=== PATIENT | male | born 1950 | race Caucasian/White ===

== ENCOUNTER 2018-06-23 11:27 | Inpatient (IN) | payer MEDICARE ==
[2018-06-23] MEDS ORDERED: Vancomycin 1gm in NS 250ml 1 GM/250 ML BAG IVPB STA (12:37)
[2018-06-23] MEDS ORDERED: Piperacill/Tazo 4.5gm in NS 4.5 GM/100 ML BAG IVPB STA (12:37)
[2018-06-23] MEDS ORDERED: Clindamycin 600mg/50ml D5W 600 MG/50 ML VIAL IVPB STA (12:40)
--- NOTE | 2018-06-23 13:02 | ED PDOC ---
Arrival/HPI - General Chief Complaint: Male Genitourinary Time Seen by Provider: 06/23/18 11:31 Historian: Patient - History of Present Illness Narrative History of Present Illness (Text): 06/23/18 16:32 68-year-old male with a history of diabetes and recent robotic prostate surgery on June 07 presents today with worsening scrotal pain swelling and erythema with difficulties with urination. Patient states he had his Benedict catheter removed approximately 9 days ago and since then has been using a diaper and having difficulty with urination. Patient states over the past 5 days he's noticed a red painful burning rash noted to the scrotum and penis with retraction of his penis. pt c/o subjective fevers and chills at home. no other complaints. Past Medical History - Provider Review Nursing Documentation Reviewed: Yes - Travel History Have you recently traveled outside [place] w/in the past 3 mons?: No - Tetanus Immunization Tetanus Immunization: Unknown - Cardiac Hx Cardiac Disorders: Yes (mitral valve repair) Hx Hypertension: Yes - Pulmonary Hx Respiratory Disorders: No - Neurological Hx Neurological Disorder: No - HEENT Hx HEENT Disorder: Yes (uses prescription glasses) - Renal Hx Renal Disorder: No - Endocrine/Metabolic Hx Endocrine Disorders: Yes Hx Diabetes Mellitus Type 2: Yes - Hematological/Oncological Hx Blood Disorders: No - Integumentary Hx Dermatological Disorder: No - Musculoskeletal/Rheumatological Hx Musculoskeletal Disorders: No Hx Falls: No - Gastrointestinal Hx Gastrointestinal Disorders: No - Genitourinary/Gynecological Hx Genitourinary Disorders: No - Psychiatric Hx Psychophysiologic Disorder: No Hx Substance Use: No - Surgical History Hx Vascular Surgery: Yes (mitral valve) - Anesthesia Hx Anesthesia: Yes Hx Anesthesia Reactions: No Hx Malignant Hyperthermia: No Family/Social History - Physician Review Nursing Documentation Reviewed: Yes Family/Social History: Unknown Family HX Smoking Status: Never Smoked Hx Alcohol Use: No Hx Substance Use: No Allergies/Home Meds Allergies/Adverse Reactions: Allergies No Known Allergies Allergy (Unverified 07/10/16 14:25) Home Medications: Home Meds Medication Instructions Recorded Confirmed Lisinopril [Zestril] 10 mg PO DAILY 07/10/16 07/10/16 Metoprolol Succinate XL [Toprol XL] 50 mg PO DAILY 07/10/16 07/10/16 metFORMIN ER [glucoPHAGE XR] 750 mg PO DAILY 07/10/16 07/10/16 Review of Systems - Review of Systems Constitutional: Fevers. absent: Fatigue Respiratory: absent: SOB, Cough Cardiovascular: absent: Chest Pain, Palpitations Gastrointestinal: absent: Abdominal Pain, Constipation, Diarrhea, Nausea, Vomiting Genitourinary Male: Dysuria, Other (scrotal pain/swelling/ erythema) Musculoskeletal: absent: Arthralgias, Back Pain, Neck Pain Skin: Rash Neurological: absent: Headache, Dizziness Psychiatric: absent: Anxiety, Depression Physical Exam Vital Signs Reviewed: Yes Vital Signs Temp Pulse Resp BP Pulse Ox 06/23/18 11:36 97.9 F 106 H 20 111/60 96 Temperature: Afebrile Blood Pressure: Normal Pulse: Tachycardic Respiratory Rate: Normal Appearance: Positive for: Non-Toxic, Comfortable, Uncomfortable Pain Distress: Mild Mental Status: Positive for: Alert and Oriented X 3 - Systems Exam Head: Present: Atraumatic Mouth: Present: Moist Mucous Membranes Neck: Present: Normal Range of Motion Respiratory/Chest: Present: Clear to Auscultation, Good Air Exchange. No: Respiratory Distress, Accessory Muscle Use Cardiovascular: Present: Normal S1, S2, Tachycardic. No: Murmurs Abdomen: Present: Other (wounds healing well without signs of infection. ). No: Tenderness, Distention, Rebound, Guarding Genitourinary Male: Present: Erythema, Other (swelling tenderness and erythema noted to the scrotum without necrosis, no crepitus. ). No: Normal External Genitalia, Penile Discharge Back: Present: Normal Inspection Upper Extremity: Present: Normal ROM Lower Extremity: Present: Normal ROM Neurological: Present: GCS=15, Speech Normal Skin: Present: Warm, Dry Psychiatric: Present: Alert, Oriented x 3 Medical Decision Making ED Course and Treatment: 06/23/18 12:46 Patient with erythema and swelling and tenderness to the scrotum and penis: Concerning for a necrotizing fasciitis. blood and urine cultures ordered Patient was started on vancomycin and Zosyn and clindamycin IV I discussed the case immediately with Dr. Jefferson in depth I discussed the case immediately with Dr. Castro surgical services manager dr. ludwig discussed the case in depth with Dr. Olguin immediately . 06/23/18 15:59 pt was seen and evaluated by dr. jefferson. cbc; wbc;14.1 Cmp; wnl ct abd/pelvis; FINDINGS: LOWER THORAX: Unremarkable. LIVER: Unremarkable. No gross lesion or ductal dilatation. GALLBLADDER AND BILE DUCTS: Unremarkable. PANCREAS: Unremarkable. No gross lesion or ductal dilatation. SPLEEN: Unremarkable. ADRENALS: Unremarkable. No mass. KIDNEYS AND URETERS: Unremarkable. No hydronephrosis. No solid mass. VASCULATURE: Unremarkable. No aortic aneurysm. No aortic atherosclerotic calcification or mural plaque present. BOWEL: Unremarkable. No obstruction. No gross mural thickening. APPENDIX: Normal appendix. PERITONEUM: Well-circumscribed cystic lesions are seen in the pelvis. These are probably the sequela of previous prostatectomy. This could represent seromas or lymphoceles. On the right side the collection measures 4.3 x 6.1 cm and on the left side 2.7 x 3.3 cm. LYMPH NODES: Unremarkable. No enlarged lymph nodes. BLADDER: Unremarkable. REPRODUCTIVE: Prostatectomy BONES: No acute fracture. OTHER FINDINGS: None. IMPRESSION: No acute intra-abdominal findings ADDENDUM: Addendum: Additional images were obtained extending through the scrotum. There are no obvious inflammatory changes and no evidence of a gas- forming infection. [ Addendum Report Added by Félix Webster MD at 06/23/2018 16:29:01 ] pt reassessment; pt still c/o pain despite morphine; case discussed with dr. Morocho in depth; will admit to med/surg for cellulitis of scrotum with possible UTI. impression; cellulitis, scrotum admit med/surg - RAD Interpretation Radiology Orders: 06/23/18 12:34 ABD & PELVIS IV CONTRAST ONLY [CT] Stat - Medication Orders Current Medication Orders: Vancomycin HCl (Vancomycin 1gm) 1 gm in 250 mls @ 167 mls/hr IVPB STAT STA; Protocol Stop: 06/23/18 14:06 Piperacillin Sod/Tazobactam Sod (Zosyn 4.5 Gm In Ns 100ml) 4.5 gm in 100 mls @ 200 mls/hr IVPB STAT STA; Protocol Stop: 06/23/18 13:06 Clindamycin Phosphate (Cleocin) 600 mg in 50 mls @ 50 mls/hr IVPB STAT STA; Protocol Stop: 06/23/18 13:39 Disposition/Present on Arrival - Present on Arrival Any Indicators Present on Arrival: Yes History of DVT/PE: No History of Uncontrolled Diabetes: Yes Urinary Catheter: No History of Decub. Ulcer: No History Surgical Site Infection Following: None - Disposition Have Diagnosis and Disposition been Completed?: Yes Diagnosis: Cellulitis of scrotum Disposition: HOSPITALIZED Disposition Time: 15:00 Patient Plan: Admission Condition: FAIR Discharge Instructions (ExitCare): Cellulitis (ED) Referrals: Brielle KING,MD Kat [Primary Care Provider] - Follow up with primary Forms: [employer] ([place]rian)
[2018-06-23 13:10] LABS: VENOUS BLOOD GAS BASE EXCESS 1.3 mmol/L (0.0-2.0); VENOUS BLOOD GAS PO2 51 mm/Hg (30-55); VENOUS BLOOD PH 7.37 (7.32-7.43)
[2018-06-23 13:20] LABS: BASO # 0.02 K/mm3 (0.0-2.0); BASO % 0.1 % (0.0-3.0); EOS # 1.1 (0.0-0.7); EOS % 7.4 % (1.5-5.0); GRAN # 10.75 (1.4-6.5); GRAN % 74.8 % (50.0-68.0); HEMOGLOBIN 16.3 g/dL (14.0-18.0); LYMPH # 1.2 (1.2-3.4); LYMPH % 8.3 % (22.0-35.0); MEAN CELL VOLUME 85.6 fl (80.0-105.0); MEAN CORPUSCULAR HEMOGLOBIN 29.6 pg (25.0-35.0); MEAN CORPUSCULAR HGB CONC 34.6 g/dl (31.0-37.0); MEAN PLATELET VOLUME 9.4 fl (7.0-11.0); MONO # 1.4 (0.1-0.6); MONO % 9.4 % (1.0-6.0); RBC 5.5 10^6/uL (3.5-6.1); RED CELL DISTRIBUTION WIDTH 13.1 % (11.5-14.5); WHITE BLOOD COUNT 14.4 10^3/uL (4.5-11.0)
[2018-06-23 13:36] LABS: INR 1.13; PARTIAL THROMBOPLASTIN TIME 28.1 Seconds (25.1-36.5)
--- NOTE | 2018-06-23 13:42 | CP.PCM.CON ---
History of Present Illness - History of Present Illness History of Present Illness: Surgery Consult Note- Dr. Olguin 68M pmhx significant DM, HTN, s/p robotic prostatectomy on 05/2018 presents to [facility] ED w/ extreme pain and burning in the perineal area over the last 36 hours. Patient states that there has been swelling around the penis and it had started to invert unable to retract penis. Over the last 5 days patient has been wearing depends and ahs been incontinent. Of note patient has had a avitia removed 5 days ago that was in place after the total prostatectomy in [facility] on 06/07/2018. Patient had taken cipro after the avitia removal. Currently patient states pain is localized in the perineal region and around the glans of the penis, especially when he tries to retract the skin. Never had pain like this in the past. Admits foul smell worsening over the last 12 hours. Denies discharge from the site. States polyuria, and the urge to urinate very hour, however a feeling of unable to completely void. No change is BM, bright red blood per rectum. 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 Wahl) ALL: NKDA SocialHx: denies current tobacco, etoh, recreational drug use FH: non-contributory 12 pt ROS conducted, negative otherwise stated above Review of Systems - Review of Systems All systems: reviewed and no additional remarkable complaints except - Constitutional Constitutional: As Per HPI Past Patient History - Past Social History Smoking Status: Never Smoked - CARDIAC Hx Cardiac Disorders: Yes (mitral valve repair) Hx Hypertension: Yes - PULMONARY Hx Respiratory Disorders: No - NEUROLOGICAL Hx Neurological Disorder: No - HEENT Hx HEENT Problems: Yes (uses prescription glasses) - RENAL Hx Chronic Kidney Disease: No - ENDOCRINE/METABOLIC Hx Endocrine Disorders: Yes Hx Diabetes Mellitus Type 2: Yes - HEMATOLOGICAL/ONCOLOGICAL Hx Blood Disorders: No - INTEGUMENTARY Hx Dermatological Problems: No - MUSCULOSKELETAL/RHEUMATOLOGICAL Hx Musculoskeletal Disorders: No Hx Falls: No - GASTROINTESTINAL Hx Gastrointestinal Disorders: No - GENITOURINARY/GYNECOLOGICAL Hx Genitourinary Disorders: No - PSYCHIATRIC Hx Psychophysiologic Disorder: No Hx Substance Use: No - SURGICAL HISTORY Hx Vascular Surgery: Yes (mitral valve) - ANESTHESIA Hx Anesthesia: Yes Hx Anesthesia Reactions: No Hx Malignant Hyperthermia: No Meds Allergies/Adverse Reactions: Allergies Allergy/AdvReac Type Severity Reaction Status Date / Time No Known Allergies Allergy Unverified 07/10/16 14:25 - Medications Medications: Current Medications Vancomycin HCl (Vancomycin 1gm) 1 gm in 250 mls @ 167 mls/hr IVPB STAT STA; Protocol Stop: 06/23/18 14:06 Clindamycin Phosphate (Cleocin) 600 mg in 50 mls @ 50 mls/hr IVPB STAT STA; Protocol Stop: 06/23/18 13:39 Physical Exam - Constitutional Appears: Non-toxic, No Acute Distress - Head Exam Head Exam: ATRAUMATIC - Eye Exam Eye Exam: EOMI. absent: Scleral icterus - ENT Exam ENT Exam: Mucous Membranes Moist - Respiratory Exam Respiratory Exam: NORMAL BREATHING PATTERN. absent: Accessory Muscle Use, Respiratory Distress - Cardiovascular Exam Cardiovascular Exam: +S1, +S2. absent: Bradycardia, Tachycardia - GI/Abdominal Exam GI & Abdominal Exam: Soft, Tenderness (mild tenderness in supra-umbilical region). absent: Distended, Firm, Guarding, Hernia, Rigid Additional comments: incisions from robotic surgery healing well dermabond peeling off No erythema or discharge from surgical incision sites - Rectal Exam Rectal Exam: absent: Black Stool, Bloody Stool, Hemorrhoids Additional comments: good tone, no blood, no masses appreciated no creptius, no discharge - Exam Exam: Circumcision, Scrotal Swelling External exam: Erythema, Swelling. absent: Ecchymosis, Lacerations Additional comments: moist, erythematous no areas of induration or fluctuance raised erythema around scrotum glans of penis inverted into skin, was able to retract skin. no purulent discharge - Neurological Exam Neurological exam: Alert, Oriented x3 - Psychiatric Exam Psychiatric exam: Normal Affect - Skin Skin Exam: Intact, Warm Results - Vital Signs Recent Vital Signs: Last Vital Signs Temp 97.9 F 06/23/18 11:36 Pulse 106 H 06/23/18 11:36 Resp 20 06/23/18 11:36 BP 111/60 06/23/18 11:36 Pulse Ox 96 06/23/18 11:36 - Labs Result Diagrams: 06/23/18 12:34 06/23/18 13:00 Labs: Laboratory Results - last 24 hr 06/23/18 13:00 pO2 51 VBG pH 7.37 VBG pCO2 47.0 VBG HCO3 27.2 VBG Total CO2 28.6 H VBG O2 Sat (Calc) 89.2 H VBG Base Excess 1.3 VBG Potassium 4.2 Sodium 133.0 Chloride 98.0 Glucose 113 H Lactate 1.8 FiO2 21.0 Venous Blood Potassium 4.2 Assessment & Plan - Assessment and Plan (Free Text) Assessment: 68M w/ rash and cellulitis around pernineum CT: no inflam changes or gas forming infection in scrotum Plan: - keep area dry - recommend Urology consult - local wound care - no acute surgical intervention indicated at this time - please re-consult as needed - [facility]/ [facility]
[2018-06-23] MEDS ORDERED: Morphine 2 mg/ml ISec IVP STA (14:10)
[2018-06-23 14:21] LABS: ALB/GLOB RATIO 1.3 (1.1-1.8); ALBUMIN 3.9 g/dL (3.0-4.8); ALT/SGPT 30 U/L (7-56); AST/SGOT 31 U/L (17-59); BLOOD UREA NITROGEN 34 mg/dL (7-21); CALCIUM 10.4 mg/dL (8.4-10.5); GFR NON-AFRICAN AMERICAN 55
--- NOTE | 2018-06-23 15:34 | RAD ---
Date of service: 06/23/2018 HISTORY: scrotal pain/ recent surgery COMPARISON: 05/10/2016 FINDINGS: LUNGS: No active pulmonary disease. PLEURA: No significant pleural effusion identified, no pneumothorax apparent. CARDIOVASCULAR: No aortic atherosclerotic calcification present. Normal cardiac size. No pulmonary vascular congestion. OSSEOUS STRUCTURES: No significant abnormalities. VISUALIZED UPPER ABDOMEN: Normal. OTHER FINDINGS: None. IMPRESSION: No active disease.
--- NOTE | 2018-06-23 15:50 | CT ---
Date of service: 06/23/2018 PROCEDURE: CT Abdomen and Pelvis with contrast HISTORY: scrotal pain/swelling/erythema. Prostate removed COMPARISON: None. TECHNIQUE: Contrast dose: 150 cc of Omni 350 Radiation dose: Total exam DLP = 1402.15 mGy-cm. This CT exam was performed using one or more of the following dose reduction techniques: Automated exposure control, adjustment of the mA and/or kV according to patient size, and/or use of iterative reconstruction technique. FINDINGS: LOWER THORAX: Unremarkable. LIVER: Unremarkable. No gross lesion or ductal dilatation. GALLBLADDER AND BILE DUCTS: Unremarkable. PANCREAS: Unremarkable. No gross lesion or ductal dilatation. SPLEEN: Unremarkable. ADRENALS: Unremarkable. No mass. KIDNEYS AND URETERS: Unremarkable. No hydronephrosis. No solid mass. VASCULATURE: Unremarkable. No aortic aneurysm. No aortic atherosclerotic calcification or mural plaque present. BOWEL: Unremarkable. No obstruction. No gross mural thickening. APPENDIX: Normal appendix. PERITONEUM: Well-circumscribed cystic lesions are seen in the pelvis. These are probably the sequela of previous prostatectomy. This could represent seromas or lymphoceles. On the right side the collection measures 4.3 x 6.1 cm and on the left side 2.7 x 3.3 cm. LYMPH NODES: Unremarkable. No enlarged lymph nodes. BLADDER: Unremarkable. REPRODUCTIVE: Prostatectomy BONES: No acute fracture. OTHER FINDINGS: None. IMPRESSION: No acute intra-abdominal findings
--- NOTE | 2018-06-23 17:56 | CP.PCM.HP ---
<Narendra Garces - Last Filed: 06/23/18 20:15> History of Present Illness - History of Present Illness History of Present Illness: Narendra Garces, PGY-1 History and Physical for the Hospitalist Service CC: Inguinal Pain HPI: Mr. Brito is a 68 M with PMHx of essential HTN, L inguinal hernia, and NIDDM (Hgba1c 7.0 1 month ago) who presents s/p robotic prostatectomy two weeks ago for cancer diagnosed on biopsy at [facility] with extreme pain and burning in the perineal area and inguinal folds. Patient states that over the last 4 days, patient has been wearing adult diapers and has been incontinent. After the procedure at [facility], patient's urinary avitia was removed 5 days ago. Initially patient denies incontinence. However, patient developed incontinence and sensitive inguinal folds the past 2 days as the area remained moist and patient was unable to control his bladder. Currently, patient states pain is localized in the perineal region and around the glans of the penis. Patient denies discharge from the site. Patient reports polyuria and hesitancy but no hematuria. Patient feels as if he has an inability to completely void. Patient denies fevers, chills, chest pain, shortness of breath, nausea, vomiting, diarrhea, numbness/tingling in extremities, changes in bowel habits. 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 Hannah at [facility] Present on Admission - Present on Admission Any Indicators Present on Admission: No Review of Systems - Review of Systems Review of Systems: 12 point ROS completed and negative except as described in HPI. Past Patient History - Tetanus Immunizations Tetanus Immunization: Unknown - Past Social History Smoking Status: Never Smoked - CARDIAC Hx Cardiac Disorders: Yes (mitral valve repair) Hx Hypertension: Yes - PULMONARY Hx Respiratory Disorders: No - NEUROLOGICAL Hx Neurological Disorder: No - HEENT Hx HEENT Problems: Yes (uses prescription glasses) - RENAL Hx Chronic Kidney Disease: No - ENDOCRINE/METABOLIC Hx Endocrine Disorders: Yes Hx Diabetes Mellitus Type 2: Yes - HEMATOLOGICAL/ONCOLOGICAL Hx Blood Disorders: No - INTEGUMENTARY Hx Dermatological Problems: No - MUSCULOSKELETAL/RHEUMATOLOGICAL Hx Musculoskeletal Disorders: No Hx Falls: No - GASTROINTESTINAL Hx Gastrointestinal Disorders: No - GENITOURINARY/GYNECOLOGICAL Hx Genitourinary Disorders: No - PSYCHIATRIC Hx Psychophysiologic Disorder: No Hx Substance Use: No - SURGICAL HISTORY Hx Vascular Surgery: Yes (mitral valve) - ANESTHESIA Hx Anesthesia: Yes Hx Anesthesia Reactions: No Hx Malignant Hyperthermia: No Meds Allergies/Adverse Reactions: Allergies Allergy/AdvReac Type Severity Reaction Status Date / Time No Known Allergies Allergy Unverified 07/10/16 14:25 Physical Exam - Additional Findings Additional findings: - Constitutional Appears: Non-toxic, No Acute Distress - Head Exam Head Exam: ATRAUMATIC - Eye Exam Eye Exam: EOMI. absent: Scleral icterus - ENT Exam ENT Exam: Mucous Membranes Moist - Respiratory Exam Respiratory Exam: NORMAL BREATHING PATTERN. absent: Accessory Muscle Use, Respiratory Distress - Cardiovascular Exam Cardiovascular Exam: +S1, +S2. absent: Bradycardia, Tachycardia - GI/Abdominal Exam GI & Abdominal Exam: Soft, Tenderness in supra-umbilical region. absent: Distended, Firm, Guarding, Hernia, Rigid Additional comments: incisions from robotic surgery c/d/i No erythema or discharge - Rectal Exam Rectal Exam: absent: Black Stool, Bloody Stool, Hemorrhoids Additional comments: Deferred - Exam Exam: Circumcision, Scrotal Swelling External exam: Erythema, Swelling. absent: Ecchymosis, Lacerations Additional comments: moist, erythematous, small patches of raw skin in inguinal folds no areas of induration or fluctuance raised erythema around scrotum glans of penis retracted into skin without purulent discharge - Neurological Exam Neurological exam: Alert, Oriented x3 - Psychiatric Exam Psychiatric exam: Normal Affect - Skin Skin Exam: Intact, Warm Results - Vital Signs Recent Vital Signs: Last Vital Signs Temp 97.9 F 06/23/18 11:36 Pulse 102 H 06/23/18 16:35 Resp 19 06/23/18 16:35 BP 104/61 06/23/18 16:35 Pulse Ox 96 06/23/18 16:35 - Labs Result Diagrams: 06/23/18 12:34 06/23/18 13:00 Labs: Laboratory Results - last 24 hr 06/23/18 06/23/1806/23/18 12:34 13:00 13:00 WBC 14.4 H RBC 5.50 Hgb 16.3 Hct 47.1 MCV 85.6 MCH 29.6 MCHC 34.6 RDW 13.1 Plt Count 237 MPV 9.4 Gran % 74.8 H Lymph % (Auto) 8.3 L [place] % (Auto) 9.4 H Eos % (Auto) 7.4 H Baso % (Auto) 0.1 Gran # 10.75 H Lymph # (Auto) 1.2 [place] # (Auto) 1.4 H Eos # (Auto) 1.1 H Baso # (Auto) 0.02 PT 13.0 H INR 1.13 APTT 28.1 pO2 51 VBG pH 7.37 VBG pCO2 47.0 VBG HCO3 27.2 VBG Total CO2 28.6 H VBG O2 Sat (Calc) 89.2 H VBG Base Excess 1.3 VBG Potassium 4.2 Sodium 133.0 Chloride 98.0 Glucose 113 H Lactate 1.8 FiO2 21.0 Potassium Carbon Dioxide Anion Gap BUN Creatinine Est GFR ( Amer) Est GFR (Non-Af Amer) Random Glucose Calcium Total Bilirubin AST ALT Alkaline Phosphatase Total Protein Albumin Globulin Albumin/Globulin Ratio Venous Blood Potassium 4.2 Blood Type Antibody Screen BBK History Checked 06/23/18 06/23/18 13:00 13:05 WBC RBC Hgb Hct MCV MCH MCHC RDW Plt Count MPV Gran % Lymph % (Auto) [place] % (Auto) Eos % (Auto) Baso % (Auto) Gran # Lymph # (Auto) [place] # (Auto) Eos # (Auto) Baso # (Auto) PT INR APTT pO2 VBG pH VBG pCO2 VBG HCO3 VBG Total CO2 VBG O2 Sat (Calc) VBG Base Excess VBG Potassium Sodium 136 Chloride 100 Glucose Lactate FiO2 Potassium 4.3 Carbon Dioxide 25 Anion Gap 15 BUN 34 H Creatinine 1.3 Est GFR ( Amer) > 60 Est GFR (Non-Af Amer) 55 Random Glucose 113 H Calcium 10.4 Total Bilirubin 0.7 AST 31 ALT 30 Alkaline Phosphatase 70 Total Protein 6.8 Albumin 3.9 Globulin 2.9 Albumin/Globulin Ratio 1.3 Venous Blood Potassium Blood Type A POSITIVE Antibody Screen Negative BBK History Checked No verified bt Assessment & Plan - Assessment and Plan (Free Text) Assessment: 68 M with with PMHx of HTN, Mitral Valve Repair, and recent prostatectomy who presents with urinary incontinence and perineal cellulitis. Perineal Cellulitis/Dermatitis Does not meet SIRS criteria at time of evaluation, leukocytosis 14.4 Will hold fluids as BP improved from time of admission to 130/70 Gen Surgery consulted - Dr. Olguin - recyun appreciated Urology consulted - Dr. Jefferson - recyun appreciated regarding possibility of catheterization ID consult - Dr. Marcum - Abx approval and recs appreciated Vanc, Zosyn, Clindamycin Pain control with Tramadol and Morphine, Desitin ointment f/u AM labs f/u blood and urine cxs f/u Hgba1c HTN Lisinopril 10 mg continue to monitor BP - will consider starting fluids if hypotensive DM Low ISS Accuchecks f/u a1c Consistent carb diet DVT Ppx SCDs, Heparin 5000 q8 Patient seen, case reviewed and plan approved by Dr. Morocho. Narendra Garces, PGY-1 <Navi Morocho - Last Filed: 06/24/18 17:48> Results - Vital Signs Recent Vital Signs: Last Vital Signs Temp 97.7 F 06/24/18 14:00 Pulse 88 06/24/18 14:00 Resp 20 06/24/18 14:00 BP 131/73 06/24/18 14:00 Pulse Ox 97 06/24/18 14:00 - Labs Result Diagrams: 06/24/18 06:45 06/24/18 06:45 Labs: Laboratory Results - last 24 hr 06/23/18 06/23/18 06/23/18 18:24 19:15 20:57 WBC RBC Hgb Hct MCV MCH MCHC RDW Plt Count MPV Gran % Lymph % (Auto) [place] % (Auto) Eos % (Auto) Baso % (Auto) Gran # Lymph # (Auto) [place] # (Auto) Eos # (Auto) Baso # (Auto) Neutrophils % (Manual) Band Neutrophils % Lymphocytes % (Manual) Monocytes % (Manual) Eosinophils % (Manual) Sodium Potassium Chloride Carbon Dioxide Anion Gap BUN Creatinine Est GFR ( Amer) Est GFR (Non-Af Amer) POC Glucose (mg/dL) 93 Random Glucose Hemoglobin A1c Calcium Total Bilirubin AST ALT Alkaline Phosphatase Total Protein Albumin Globulin Albumin/Globulin Ratio Triglycerides Cholesterol LDL Cholesterol Direct HDL Cholesterol Urine Color Yellow Urine Appearance Slight-cloudy Urine pH 6.5 Ur Specific [place] <= 1.005 Urine Protein Trace H Urine Glucose (UA) Negative Urine Ketones Negative Urine Blood Large H Urine Nitrate Negative Urine Bilirubin Negative Urine Urobilinogen 0.2 Ur Leukocyte Esterase Negative Urine RBC 5 - 10 Urine WBC 0 - 2 Ur Epithelial Cells 0 - 2 Other Crystals Cystine Blood Type Confirm A POSITIVE 06/24/18 06/24/18 06/24/18 06:45 06:45 06:45 WBC 18.0 H D RBC 5.06 Hgb 14.7 Hct 43.6 MCV 86.2 MCH 29.1 MCHC 33.7 RDW 13.3 Plt Count 219 MPV 9.6 Gran % 83.1 H Lymph % (Auto) 4.7 L [place] % (Auto) 8.4 H Eos % (Auto) 3.6 Baso % (Auto) 0.2 Gran # 14.99 H Lymph # (Auto) 0.9 L [place] # (Auto) 1.5 H Eos # (Auto) 0.6 Baso # (Auto) 0.03 Neutrophils % (Manual) 82 H Band Neutrophils % 1 Lymphocytes % (Manual) 5 L Monocytes % (Manual) 10 H Eosinophils % (Manual) 2 Sodium 134 Potassium 4.2 Chloride 99 Carbon Dioxide 27 Anion Gap 12 BUN 24 H Creatinine 1.2 Est GFR ( Amer) > 60 Est GFR (Non-Af Amer) 60 POC Glucose (mg/dL) Random Glucose 134 H Hemoglobin A1c 6.9 H Calcium 8.8 Total Bilirubin 0.9 AST 33 ALT 32 Alkaline Phosphatase 70 Total Protein 6.4 Albumin 3.6 Globulin 2.8 Albumin/Globulin Ratio 1.3 Triglycerides 101 Cholesterol 113 L LDL Cholesterol Direct 71 HDL Cholesterol 30 Urine Color Urine Appearance Urine pH Ur Specific [place] Urine Protein Urine Glucose (UA) Urine Ketones Urine Blood Urine Nitrate Urine Bilirubin Urine Urobilinogen Ur Leukocyte Esterase Urine RBC Urine WBC Ur Epithelial Cells Other Crystals Blood Type Confirm 06/24/18 06/24/18 10:47 15:55 WBC RBC Hgb Hct MCV MCH MCHC RDW Plt Count MPV Gran % Lymph % (Auto) [place] % (Auto) Eos % (Auto) Baso % (Auto) Gran # Lymph # (Auto) [place] # (Auto) Eos # (Auto) Baso # (Auto) Neutrophils % (Manual) Band Neutrophils % Lymphocytes % (Manual) Monocytes % (Manual) Eosinophils % (Manual) Sodium Potassium Chloride Carbon Dioxide Anion Gap BUN Creatinine Est GFR ( Amer) Est GFR (Non-Af Amer) POC Glucose (mg/dL) 189 H 136 H Random Glucose Hemoglobin A1c Calcium Total Bilirubin AST ALT Alkaline Phosphatase Total Protein Albumin Globulin Albumin/Globulin Ratio Triglycerides Cholesterol LDL Cholesterol Direct HDL Cholesterol Urine Color Urine Appearance Urine pH Ur Specific [place] Urine Protein Urine Glucose (UA) Urine Ketones Urine Blood Urine Nitrate Urine Bilirubin Urine Urobilinogen Ur Leukocyte Esterase Urine RBC Urine WBC Ur Epithelial Cells Other Crystals Blood Type Confirm Attending/Attestation - Attestation I have personally seen and examined this patient.: Yes I have fully participated in the care of the patient.: Yes I have reviewed all pertinent clinical information: Yes Notes (Text): Perineal and scrotal cellulitis: Some concern for fornier's gangrene, however CT was negative Leukocytosis, LA WNL, low grade fever send blood cultures c/w dwight Bundy and clinda Urinary incontinence Urology on board, pt may benefit from indwelling avitia catheter DM: WILIAM 06/24/18 17:44
[2018-06-23 18:45] LABS: PH,URINE 6.5 (4.7-8.0); URINE BILIRUBIN NEGATIVE (NEGATIVE); URINE BLOOD LARGE (NEGATIVE); URINE GLUCOSE (UA) NEGATIVE (NEGATIVE); URINE LEUKOCYTE ESTERASE NEGATIVE Leu/uL (NEGATIVE); URINE PROTEIN TRACE mg/dL (<30 mg/dL); URINE UROBILINOGEN 0.2 E.U./dL (<1 E.U./dL)
[2018-06-23 18:46] LABS: URINE APPEARANCE SLIGHT-CLOUDY (CLEAR); URINE COLOR YELLOW (YELLOW)
[2018-06-23 18:55] LABS: URINE EPITHELIAL CELLS 0 - 2 /hpf (0-5); URINE WBC 0 - 2 /hpf (0-6)
[2018-06-23] MEDS ORDERED: Zinc Oxide Topical 40% Oint (Desitin) TOP PRN (18:56)
[2018-06-23 18:57] LABS: URINE OTHER CRYSTALS CYSTINE /hpf
[2018-06-23] MEDS: Insulin Reg-LOW-Coverage SC SCH (21:25)
[2018-06-23] MEDS: Morphine 2 mg/ml ISec IVP PRN (21:26)
[2018-06-23] MEDS ORDERED: Clindamycin 600mg/50ml D5W 600 MG/50 ML VIAL IVPB SCH (22:00)
[2018-06-23] MEDS ORDERED: Piperacillin/Tazobact 3.375 gm 100 ML IVPB SCH (22:00)
[2018-06-23 22:13] VITALS: BMI 28.7
[2018-06-23] MEDS: Linezolid 600 mg in D5W 300 ml 600 MG/300 ML BAG IVPB SCH (22:50)
--- NOTE | 2018-06-23 23:16 | PCM.URO ---
Urology Progress Note - Subjective Frequency: Yes (for now gu plans : observation and antibiotics ) - Objective Lab Studies: Reviewed (further plans to follow full note to be dictated) Lab Results Last 24 Hours: Laboratory Results - last 24 hr 06/23/18 06/23/18 06/23/18 12:34 13:00 13:00 WBC 14.4 H RBC 5.50 Hgb 16.3 Hct 47.1 MCV 85.6 MCH 29.6 MCHC 34.6 RDW 13.1 Plt Count 237 MPV 9.4 Gran % 74.8 H Lymph % (Auto) 8.3 L [place] % (Auto) 9.4 H Eos % (Auto) 7.4 H Baso % (Auto) 0.1 Gran # 10.75 H Lymph # (Auto) 1.2 [place] # (Auto) 1.4 H Eos # (Auto) 1.1 H Baso # (Auto) 0.02 PT 13.0 H INR 1.13 APTT 28.1 pO2 51 VBG pH 7.37 VBG pCO2 47.0 VBG HCO3 27.2 VBG Total CO2 28.6 H VBG O2 Sat (Calc) 89.2 H VBG Base Excess 1.3 VBG Potassium 4.2 Sodium 133.0 Chloride 98.0 Glucose 113 H Lactate 1.8 FiO2 21.0 Potassium Carbon Dioxide Anion Gap BUN Creatinine Est GFR ( Amer) Est GFR (Non-Af Amer) POC Glucose (mg/dL) Random Glucose Calcium Total Bilirubin AST ALT Alkaline Phosphatase Total Protein Albumin Globulin Albumin/Globulin Ratio Venous Blood Potassium 4.2 Urine Color Urine Appearance Urine pH Ur Specific [place] Urine Protein Urine Glucose (UA) Urine Ketones Urine Blood Urine Nitrate Urine Bilirubin Urine Urobilinogen Ur Leukocyte Esterase Urine RBC Urine WBC Ur Epithelial Cells Other Crystals Blood Type Blood Type Confirm Antibody Screen BBK History Checked 06/23/18 06/23/18 06/23/18 13:00 13:05 18:24 WBC RBC Hgb Hct MCV MCH MCHC RDW Plt Count MPV Gran % Lymph % (Auto) [place] % (Auto) Eos % (Auto) Baso % (Auto) Gran # Lymph # (Auto) [place] # (Auto) Eos # (Auto) Baso # (Auto) PT INR APTT pO2 VBG pH VBG pCO2 VBG HCO3 VBG Total CO2 VBG O2 Sat (Calc) VBG Base Excess VBG Potassium Sodium 136 Chloride 100 Glucose Lactate FiO2 Potassium 4.3 Carbon Dioxide 25 Anion Gap 15 BUN 34 H Creatinine 1.3 Est GFR ( Amer) > 60 Est GFR (Non-Af Amer) 55 POC Glucose (mg/dL) Random Glucose 113 H Calcium 10.4 Total Bilirubin 0.7 AST 31 ALT 30 Alkaline Phosphatase 70 Total Protein 6.8 Albumin 3.9 Globulin 2.9 Albumin/Globulin Ratio 1.3 Venous Blood Potassium Urine Color Yellow Urine Appearance Slight-cloudy Urine pH 6.5 Ur Specific [place] <= 1.005 Urine Protein Trace H Urine Glucose (UA) Negative Urine Ketones Negative Urine Blood Large H Urine Nitrate Negative Urine Bilirubin Negative Urine Urobilinogen 0.2 Ur Leukocyte Esterase Negative Urine RBC 5 - 10 Urine WBC 0 - 2 Ur Epithelial Cells 0 - 2 Other Crystals Cystine Blood Type A POSITIVE Blood Type Confirm Antibody Screen Negative BBK History Checked No verified bt 06/23/18 06/23/18 19:15 20:57 WBC RBC Hgb Hct MCV MCH MCHC RDW Plt Count MPV Gran % Lymph % (Auto) [place] % (Auto) Eos % (Auto) Baso % (Auto) Gran # Lymph # (Auto) [place] # (Auto) Eos # (Auto) Baso # (Auto) PT INR APTT pO2 VBG pH VBG pCO2 VBG HCO3 VBG Total CO2 VBG O2 Sat (Calc) VBG Base Excess VBG Potassium Sodium Chloride Glucose Lactate FiO2 Potassium Carbon Dioxide Anion Gap BUN Creatinine Est GFR ( Amer) Est GFR (Non-Af Amer) POC Glucose (mg/dL) 93 Random Glucose Calcium Total Bilirubin AST ALT Alkaline Phosphatase Total Protein Albumin Globulin Albumin/Globulin Ratio Venous Blood Potassium Urine Color Urine Appearance Urine pH Ur Specific [place] Urine Protein Urine Glucose (UA) Urine Ketones Urine Blood Urine Nitrate Urine Bilirubin Urine Urobilinogen Ur Leukocyte Esterase Urine RBC Urine WBC Ur Epithelial Cells Other Crystals Blood Type Blood Type Confirm A POSITIVE Antibody Screen BBK History Checked Intake & Output: Intake & Output 06/23/18 06/23/18 06/24/18 06:59 18:59 06:59 Intake Total 540 Balance 540 Weight 200 lb 200 lb Intake: Oral 540 Other: # Bowel Movements 0 Vital Signs: Vital Signs - 24 hr 06/23/18 06/23/18 06/23/18 11:36 13:28 16:35 Temperature 97.9 F Pulse Rate 106 H 100 H 102 H Respiratory 20 20 19 Rate Blood Pressure 111/60 120/69 104/61 O2 Sat by Pulse 96 98 96 Oximetry 06/23/18 06/23/18 06/23/18 18:44 20:12 22:44 Temperature 99 F Pulse Rate 95 H 90 97 H Respiratory 18 18 20 Rate Blood Pressure 130/70 137/80 112/71 O2 Sat by Pulse 98 98 97 Oximetry
[2018-06-24] MEDS: Morphine 2 mg/ml ISec IVP PRN ×4 (00:56→15:32)
[2018-06-24] MEDS: Meropenem IV 1 gm in NS 1 GM/50 ML BAG IVPB SCH ×3 (05:40→21:44)
[2018-06-24 07:26] LABS: BASO # 0.03 K/mm3 (0.0-2.0); BASO % 0.2 % (0.0-3.0); EOS # 0.6 (0.0-0.7); EOS % 3.6 % (1.5-5.0); GRAN # 14.99 (1.4-6.5); GRAN % 83.1 % (50.0-68.0); HEMOGLOBIN 14.7 g/dL (14.0-18.0); LYMPH # 0.9 (1.2-3.4); LYMPH % 4.7 % (22.0-35.0); MEAN CELL VOLUME 86.2 fl (80.0-105.0); MEAN CORPUSCULAR HEMOGLOBIN 29.1 pg (25.0-35.0); MEAN CORPUSCULAR HGB CONC 33.7 g/dl (31.0-37.0); MEAN PLATELET VOLUME 9.6 fl (7.0-11.0); MONO # 1.5 (0.1-0.6); MONO % 8.4 % (1.0-6.0); PLATELET COUNT 219 10^3/uL (120.0-450.0); RBC 5.06 10^6/uL (3.5-6.1); RED CELL DISTRIBUTION WIDTH 13.3 % (11.5-14.5)
[2018-06-24 07:36] LABS: ALB/GLOB RATIO 1.3 (1.1-1.8); ALBUMIN 3.6 g/dL (3.0-4.8); ALT/SGPT 32 U/L (7-56); AST/SGOT 33 U/L (17-59); BLOOD UREA NITROGEN 24 mg/dL (7-21); CALCIUM 8.8 mg/dL (8.4-10.5); GFR NON-AFRICAN AMERICAN 60; HDL CHOLESTEROL 30 mg/dL (29-60)
[2018-06-24 07:45] LABS: LDL CHOLESTEROL 71 mg/dL (0-129)
[2018-06-24 08:31] LABS: BAND 1 % (0-2); EOSINOPHIL 2 % (0.0-3.0); LYMPHOCYTE 5 % (22.0-35.0); MONOCYTE 10 % (1.0-6.0); NEUTROPHIL 82 % (50.0-70.0)
[2018-06-24] MEDS: Insulin Reg-LOW-Coverage SC SCH ×4 (09:10→21:45)
[2018-06-24] MEDS: Linezolid 600 mg in D5W 300 ml 600 MG/300 ML BAG IVPB SCH ×2 (09:18→21:45)
[2018-06-24] MEDS ORDERED: Vancomycin 1gm in NS 250ml 1 GM/250 ML BAG IVPB SCH (10:00)
--- NOTE | 2018-06-24 13:35 | PCM.URO ---
Urology Progress Note - Subjective Weak Stream: Yes (avitia insertion ) - Objective Lab Results Last 24 Hours: Laboratory Results - last 24 hr 06/23/18 06/23/18 06/23/18 13:00 13:00 13:05 WBC RBC Hgb Hct MCV MCH MCHC RDW Plt Count MPV Gran % Lymph % (Auto) [place] % (Auto) Eos % (Auto) Baso % (Auto) Gran # Lymph # (Auto) [place] # (Auto) Eos # (Auto) Baso # (Auto) Neutrophils % (Manual) Band Neutrophils % Lymphocytes % (Manual) Monocytes % (Manual) Eosinophils % (Manual) PT 13.0 H INR 1.13 APTT 28.1 Sodium 136 Potassium 4.3 Chloride 100 Carbon Dioxide 25 Anion Gap 15 BUN 34 H Creatinine 1.3 Est GFR ( Amer) > 60 Est GFR (Non-Af Amer) 55 POC Glucose (mg/dL) Random Glucose 113 H Hemoglobin A1c Calcium 10.4 Total Bilirubin 0.7 AST 31 ALT 30 Alkaline Phosphatase 70 Total Protein 6.8 Albumin 3.9 Globulin 2.9 Albumin/Globulin Ratio 1.3 Triglycerides Cholesterol LDL Cholesterol Direct HDL Cholesterol Urine Color Urine Appearance Urine pH Ur Specific [place] Urine Protein Urine Glucose (UA) Urine Ketones Urine Blood Urine Nitrate Urine Bilirubin Urine Urobilinogen Ur Leukocyte Esterase Urine RBC Urine WBC Ur Epithelial Cells Other Crystals Blood Type A POSITIVE Blood Type Confirm Antibody Screen Negative BBK History Checked No verified bt 06/23/18 06/23/18 06/23/18 18:24 19:15 20:57 WBC RBC Hgb Hct MCV MCH MCHC RDW Plt Count MPV Gran % Lymph % (Auto) [place] % (Auto) Eos % (Auto) Baso % (Auto) Gran # Lymph # (Auto) [place] # (Auto) Eos # (Auto) Baso # (Auto) Neutrophils % (Manual) Band Neutrophils % Lymphocytes % (Manual) Monocytes % (Manual) Eosinophils % (Manual) PT INR APTT Sodium Potassium Chloride Carbon Dioxide Anion Gap BUN Creatinine Est GFR ( Amer) Est GFR (Non-Af Amer) POC Glucose (mg/dL) 93 Random Glucose Hemoglobin A1c Calcium Total Bilirubin AST ALT Alkaline Phosphatase Total Protein Albumin Globulin Albumin/Globulin Ratio Triglycerides Cholesterol LDL Cholesterol Direct HDL Cholesterol Urine Color Yellow Urine Appearance Slight-cloudy Urine pH 6.5 Ur Specific [place] <= 1.005 Urine Protein Trace H Urine Glucose (UA) Negative Urine Ketones Negative Urine Blood Large H Urine Nitrate Negative Urine Bilirubin Negative Urine Urobilinogen 0.2 Ur Leukocyte Esterase Negative Urine RBC 5 - 10 Urine WBC 0 - 2 Ur Epithelial Cells 0 - 2 Other Crystals Cystine Blood Type Blood Type Confirm A POSITIVE Antibody Screen BBK History Checked 06/24/18 06/24/18 06/24/18 06:45 06:45 06:45 WBC 18.0 H D RBC 5.06 Hgb 14.7 Hct 43.6 MCV 86.2 MCH 29.1 MCHC 33.7 RDW 13.3 Plt Count 219 MPV 9.6 Gran % 83.1 H Lymph % (Auto) 4.7 L [place] % (Auto) 8.4 H Eos % (Auto) 3.6 Baso % (Auto) 0.2 Gran # 14.99 H Lymph # (Auto) 0.9 L [place] # (Auto) 1.5 H Eos # (Auto) 0.6 Baso # (Auto) 0.03 Neutrophils % (Manual) 82 H Band Neutrophils % 1 Lymphocytes % (Manual) 5 L Monocytes % (Manual) 10 H Eosinophils % (Manual) 2 PT INR APTT Sodium 134 Potassium 4.2 Chloride 99 Carbon Dioxide 27 Anion Gap 12 BUN 24 H Creatinine 1.2 Est GFR ( Amer) > 60 Est GFR (Non-Af Amer) 60 POC Glucose (mg/dL) Random Glucose 134 H Hemoglobin A1c 6.9 H Calcium 8.8 Total Bilirubin 0.9 AST 33 ALT 32 Alkaline Phosphatase 70 Total Protein 6.4 Albumin 3.6 Globulin 2.8 Albumin/Globulin Ratio 1.3 Triglycerides 101 Cholesterol 113 L LDL Cholesterol Direct 71 HDL Cholesterol 30 Urine Color Urine Appearance Urine pH Ur Specific [place] Urine Protein Urine Glucose (UA) Urine Ketones Urine Blood Urine Nitrate Urine Bilirubin Urine Urobilinogen Ur Leukocyte Esterase Urine RBC Urine WBC Ur Epithelial Cells Other Crystals Blood Type Blood Type Confirm Antibody Screen BBK History Checked 06/24/18 10:47 WBC RBC Hgb Hct MCV MCH MCHC RDW Plt Count MPV Gran % Lymph % (Auto) [place] % (Auto) Eos % (Auto) Baso % (Auto) Gran # Lymph # (Auto) [place] # (Auto) Eos # (Auto) Baso # (Auto) Neutrophils % (Manual) Band Neutrophils % Lymphocytes % (Manual) Monocytes % (Manual) Eosinophils % (Manual) PT INR APTT Sodium Potassium Chloride Carbon Dioxide Anion Gap BUN Creatinine Est GFR ( Amer) Est GFR (Non-Af Amer) POC Glucose (mg/dL) 189 H Random Glucose Hemoglobin A1c Calcium Total Bilirubin AST ALT Alkaline Phosphatase Total Protein Albumin Globulin Albumin/Globulin Ratio Triglycerides Cholesterol LDL Cholesterol Direct HDL Cholesterol Urine Color Urine Appearance Urine pH Ur Specific [place] Urine Protein Urine Glucose (UA) Urine Ketones Urine Blood Urine Nitrate Urine Bilirubin Urine Urobilinogen Ur Leukocyte Esterase Urine RBC Urine WBC Ur Epithelial Cells Other Crystals Blood Type Blood Type Confirm Antibody Screen BBK History Checked Intake & Output: Intake & Output 06/23/18 06/24/18 06/24/18 18:59 06:59 18:59 Intake Total 1180 Balance 1180 Weight 200 lb 200 lb Intake: IV 400 Right Antecubital 400 Oral 780 Other: # Voids Urine, Voided 4 # Bowel Movements 0 Vital Signs: Vital Signs - 24 hr 06/23/18 06/23/18 06/23/18 16:35 18:44 20:12 Temperature Pulse Rate 102 H 95 H 90 Respiratory 19 18 18 Rate Blood Pressure 104/61 130/70 137/80 O2 Sat by Pulse 96 98 98 Oximetry 06/23/18 06/23/18 06/24/18 20:56 22:44 06:00 Temperature 99 F 98.5 F Pulse Rate 97 H 100 H Respiratory 18 20 20 Rate Blood Pressure 112/71 119/70 O2 Sat by Pulse 97 96 Oximetry 06/24/18 09:17 Temperature Pulse Rate 95 H Respiratory Rate Blood Pressure 142/69 O2 Sat by Pulse Oximetry
--- NOTE | 2018-06-24 14:06 | CP.PCM.PN ---
<Marc Miller - Last Filed: 06/24/18 14:02> Subjective - Date & Time of Evaluation Date of Evaluation: 06/24/18 Time of Evaluation: 14:02 - Subjective Subjective: Marc Miller, PGY-1, Internal Medicine Progress Note Patient seen and evaluated at bedside. Patient had no acute overnight events. Patient reports pain, swelling, redness in the scrotum and surrounding inguinal folds. Patient denies fever, nausea, vomiting, penile discharge, dysuria, and hematuria. Patient does however report polyuria. 12-point ROS was negative except for what is mentioned above. Objective - Vital Signs/Intake and Output Vital Signs (last 24 hours): Temp Pulse Resp BP Pulse Ox 98.5 F 95 H 20 142/69 96 06/24/18 06:00 06/24/18 09:17 06/24/18 06:00 06/24/18 09:17 06/24/18 06:00 Intake and Output: 06/24/18 06/24/18 06:59 18:59 Intake Total 1180 Balance 1180 - Medications Medications: Current Medications Heparin Sodium (Porcine) (Heparin) 5,000 units SC Q8 CHANDNI; Protocol Last Admin: 06/24/18 13:29 Dose: 5,000 units Meropenem (Merrem Iv 1 Gm Premix) 1 gm in 50 mls @ 100 mls/hr IVPB Q8 CHANDNI; Protocol Stop: 07/03/18 06:01 Last Admin: 06/24/18 13:29 Dose: 100 mls/hr Linezolid (Zyvox 600mg/300ml D5w) 600 mg in 300 mls @ 200 mls/hr IVPB Q12 CHANDNI; Protocol Stop: 07/02/18 22:23 Last Admin: 06/24/18 09:18 Dose: 200 mls/hr Insulin Human Regular (Humulin R Low) 0 units SC ACHS CHANDNI; Protocol Last Admin: 06/24/18 11:25 Dose: 1 units Lisinopril (Zestril) 10 mg PO DAILY CHANDNI Last Admin: 06/24/18 09:17 Dose: 10 mg Morphine Sulfate (Morphine) 1 mg IVP Q4H PRN PRN Reason: Pain, severe (8-10) Last Admin: 06/24/18 09:13 Dose: 1 mg Petrolatum (Desitin Maximum Strength Topical 40% Oint) 0 gm TOP Q4H PRN PRN Reason: Rash Last Admin: 06/23/18 21:14 Dose: 1 applic - Labs Labs: 06/24/18 06:45 06/24/18 06:45 PT 13.0 SECONDS (9.4-12.5) H 06/23/18 13:00 INR 1.13 06/23/18 13:00 APTT 28.1 Seconds (25.1-36.5) 06/23/18 13:00 - Constitutional Appears: Well, Non-toxic, No Acute Distress - Head Exam Head Exam: ATRAUMATIC, NORMAL INSPECTION, NORMOCEPHALIC - Eye Exam Eye Exam: EOMI, PERRL - Neck Exam Neck Exam: Full ROM - Respiratory Exam Respiratory Exam: Clear to Ausculation Bilateral, NORMAL BREATHING PATTERN - Cardiovascular Exam Cardiovascular Exam: REGULAR RHYTHM, RRR - GI/Abdominal Exam GI & Abdominal Exam: Soft, Tenderness (suprapubic), Normal Bowel Sounds - Exam Exam: Scrotal Swelling, Testicular Tenderness. absent: Uretheral Discharge External exam: Erythema - Extremities Exam Extremities Exam: Full ROM - Psychiatric Exam Psychiatric exam: Normal Affect, Normal Mood - Skin Additional comments: erythematous and swollen scrotum and surrounding inguinal folds Assessment and Plan - Assessment and Plan (Free Text) Assessment: 68 year old male with past medical history of hypertension, left inguinal hernia, noninsulin dependent diabetes (HgbA1c 7.0 1 month ago), presents with extreme pain and burning in perineal area and inguinal folds. Patient has been incontinent for 4 days status post prostatectomy surgery 9 days ago Plan: Erythematous scrotum and inguinal area likely 2/2 to cellulitis -Likely secondary to area soaked in urine because of patient's recent incontinence and excoriations around the area. -Blood cultures are negative for 24 hours. Urine culture ordered. -Patient currently has leukocytosis at 18. Heart rate was 97 this morning. As a result, this patient fulfills sepsis criteria. -As per ID, continue with linezolid and merrem -Continue with desitin cream for affected area. -Morphine 1 mg Q4 for pain Retracted Penis with urinary incontinence -Likely secondary to inflammation from recent surgery or recent infection -Condition possibly caused by excess fat, fluid retention, and problems with ligaments post surgery. -As per Dr. Jefferson, avitia catheter placed for patient for incontinence. -As per surgery, Dr. Olguin, no surgical intervention at this time Hypertension -Continue home zestril Non insulin dependent Diabetes Mellitus -Glucose has ranged from 134-189 today. -HgbA1c was 6.9 -Low dose sliding scale insulin continued DVT prophylaxis: heparin 5000 U daily GI prophylaxis: protonix 40 mg daily Patient plan discussed with Dr. Barcenas <Shamir Barcenas - Last Filed: 06/24/18 17:58> Objective - Vital Signs/Intake and Output Vital Signs (last 24 hours): Temp Pulse Resp BP Pulse Ox 97.7 F 88 20 131/73 97 06/24/18 14:00 06/24/18 14:00 06/24/18 14:00 06/24/18 14:00 06/24/18 14:00 Intake and Output: 06/24/18 06/24/18 06:59 18:59 Intake Total 1180 Balance 1180 - Medications Medications: Current Medications Heparin Sodium (Porcine) (Heparin) 5,000 units SC Q8 CAHNDNI; Protocol Last Admin: 06/24/18 13:29 Dose: 5,000 units Meropenem (Merrem Iv 1 Gm Premix) 1 gm in 50 mls @ 100 mls/hr IVPB Q8 CHANDNI; Protocol Stop: 07/03/18 06:01 Last Admin: 06/24/18 13:29 Dose: 100 mls/hr Linezolid (Zyvox 600mg/300ml D5w) 600 mg in 300 mls @ 200 mls/hr IVPB Q12 CHANDNI; Protocol Stop: 07/02/18 22:23 Last Admin: 06/24/18 09:18 Dose: 200 mls/hr Insulin Human Regular (Humulin R Low) 0 units SC ACHS CHANDNI; Protocol Last Admin: 06/24/18 11:25 Dose: 1 units Lisinopril (Zestril) 10 mg PO DAILY CHANDNI Last Admin: 06/24/18 09:17 Dose: 10 mg Morphine Sulfate (Morphine) 1 mg IVP Q4H PRN PRN Reason: Pain, severe (8-10) Last Admin: 06/24/18 15:32 Dose: 1 mg Pantoprazole Sodium (Protonix Ec Tab) 40 mg PO ACB CHANDNI Petrolatum (Desitin Maximum Strength Topical 40% Oint) 0 gm TOP Q4H PRN PRN Reason: Rash Last Admin: 06/23/18 21:14 Dose: 1 applic - Labs Labs: 06/24/18 06:45 06/24/18 06:45 PT 13.0 SECONDS (9.4-12.5) H 06/23/18 13:00 INR 1.13 06/23/18 13:00 APTT 28.1 Seconds (25.1-36.5) 06/23/18 13:00 Attending/Attestation - Attestation I have personally seen and examined this patient.: Yes I have fully participated in the care of the patient.: Yes I have reviewed all pertinent clinical information, including history, physical exam and plan: Yes Notes (Text): 06/24/18 17:53 68 year old male with past medical history of hypertension, diabetes, and recent prostatectomy surgery who presented with scrotal / perineal cellulitis. CT scan was reviewed. ID and urology evaluation were appreciated. Continue with avitia care. Continue with iv antibiotics. Follow up on cultures. He is on insulin ss for diabetes. Shamir Barcenas MD Hospitalist.
--- NOTE | 2018-06-24 15:24 | CP.PCM.CON ---
<Marek Lorenzo - Last Filed: 06/24/18 17:01> History of Present Illness - History of Present Illness History of Present Illness: ID Consult Note - Dr Marcum CC: Perineal Cellulitis HPI: 68 M with PMHx of HTN, L inguinal hernia, and NIDDM that presented to [facility] with complaints of lower abdomen pain and discomfort. Pt approximately 2 weeks ago underwent a prostatectomy at [facility] and has been incontinent since that time and wearing diapers after avitia was removed. Approximately 5 days ago, he n oticed that he was experiencing significant discomfort in the perineal region and associated pain and itching. He denied any swelling or discharge from the site, however noticed significant skin irritation. Patient denies fevers, chills, chest pain, shortness of breath, nausea, hematuria, vomiting, diarrhea, or constipation. 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, robotic total prostatectomy SHx: former tobacco use, Otherwise denied FamHx: Non contributory Meds: MAR Reviewed Allergies: NKDA Review of Systems - Review of Systems Review of Systems: as per HPI otherwise negative Past Patient History - Tetanus Immunizations Tetanus Immunization: Unknown - Past Social History Smoking Status: Never Smoked - CARDIAC Hx Cardiac Disorders: Yes (mitral valve repair) Hx Hypertension: Yes - PULMONARY Hx Respiratory Disorders: No - NEUROLOGICAL Hx Neurological Disorder: No - HEENT Hx HEENT Problems: Yes (uses prescription glasses) - RENAL Hx Chronic Kidney Disease: No - ENDOCRINE/METABOLIC Hx Endocrine Disorders: Yes Hx Diabetes Mellitus Type 2: Yes - HEMATOLOGICAL/ONCOLOGICAL Hx Blood Disorders: No - INTEGUMENTARY Hx Dermatological Problems: No - MUSCULOSKELETAL/RHEUMATOLOGICAL Hx Musculoskeletal Disorders: No Hx Falls: No - GASTROINTESTINAL Hx Gastrointestinal Disorders: No - GENITOURINARY/GYNECOLOGICAL Hx Genitourinary Disorders: No - PSYCHIATRIC Hx Psychophysiologic Disorder: No - SURGICAL HISTORY Hx Surgeries: Yes (Mitral valve repair) Other/Comment: prostatectomy 06/07/2018 - ANESTHESIA Hx Anesthesia: Yes Hx Anesthesia Reactions: No Hx Malignant Hyperthermia: No Meds Allergies/Adverse Reactions: Allergies Allergy/AdvReac Type Severity Reaction Status Date / Time No Known Allergies Allergy Unverified 07/10/16 14:25 - Medications Medications: Current Medications Heparin Sodium (Porcine) (Heparin) 5,000 units SC Q8 CHANDNI; Protocol Last Admin: 06/24/18 13:29 Dose: 5,000 units Meropenem (Merrem Iv 1 Gm Premix) 1 gm in 50 mls @ 100 mls/hr IVPB Q8 CHANDNI; Protocol Stop: 07/03/18 06:01 Last Admin: 06/24/18 13:29 Dose: 100 mls/hr Linezolid (Zyvox 600mg/300ml D5w) 600 mg in 300 mls @ 200 mls/hr IVPB Q12 CHANDNI; Protocol Stop: 07/02/18 22:23 Last Admin: 06/24/18 09:18 Dose: 200 mls/hr Insulin Human Regular (Humulin R Low) 0 units SC ACHS CHANDNI; Protocol Last Admin: 06/24/18 11:25 Dose: 1 units Lisinopril (Zestril) 10 mg PO DAILY [facility] Last Admin: 06/24/18 09:17 Dose: 10 mg Morphine Sulfate (Morphine) 1 mg IVP Q4H PRN PRN Reason: Pain, severe (8-10) Last Admin: 06/24/18 09:13 Dose: 1 mg Pantoprazole Sodium (Protonix Inj) 40 mg IVP DAILY [facility] Petrolatum (Desitin Maximum Strength Topical 40% Oint) 0 gm TOP Q4H PRN PRN Reason: Rash Last Admin: 06/23/18 21:14 Dose: 1 applic Physical Exam - Constitutional Appears: No Acute Distress - Head Exam Head Exam: ATRAUMATIC, NORMAL INSPECTION, NORMOCEPHALIC - Eye Exam Eye Exam: EOMI, Normal appearance, PERRL Pupil Exam: NORMAL ACCOMODATION, PERRL - ENT Exam ENT Exam: Mucous Membranes Moist, Normal Exam - Respiratory Exam Respiratory Exam: Clear to Auscultation Bilateral, NORMAL BREATHING PATTERN - Cardiovascular Exam Cardiovascular Exam: REGULAR RHYTHM - GI/Abdominal Exam GI & Abdominal Exam: Normal Bowel Sounds, Soft. absent: Tenderness - Exam Additional comments: excoriated perineal region - Neurological Exam Neurological exam: Alert, CN II-XII Intact, Oriented x3, Reflexes Normal - Psychiatric Exam Psychiatric exam: Normal Affect, Normal Mood Results - Vital Signs Recent Vital Signs: Last Vital Signs Temp 97.7 F 06/24/18 14:00 Pulse 88 06/24/18 14:00 Resp 20 06/24/18 14:00 BP 131/73 06/24/18 14:00 Pulse Ox 97 06/24/18 14:00 - Labs Result Diagrams: 06/24/18 06:45 06/24/18 06:45 Labs: Laboratory Results - last 24 hr 06/23/18 06/23/18 06/23/18 18:24 19:15 20:57 WBC RBC Hgb Hct MCV MCH MCHC RDW Plt Count MPV Gran % Lymph % (Auto) [place] % (Auto) Eos % (Auto) Baso % (Auto) Gran # Lymph # (Auto) [place] # (Auto) Eos # (Auto) Baso # (Auto) Neutrophils % (Manual) Band Neutrophils % Lymphocytes % (Manual) Monocytes % (Manual) Eosinophils % (Manual) Sodium Potassium Chloride Carbon Dioxide Anion Gap BUN Creatinine Est GFR ( Amer) Est GFR (Non-Af Amer) POC Glucose (mg/dL) 93 Random Glucose Hemoglobin A1c Calcium Total Bilirubin AST ALT Alkaline Phosphatase Total Protein Albumin Globulin Albumin/Globulin Ratio Triglycerides Cholesterol LDL Cholesterol Direct HDL Cholesterol Urine Color Yellow Urine Appearance Slight-cloudy Urine pH 6.5 Ur Specific [place] <= 1.005 Urine Protein Trace H Urine Glucose (UA) Negative Urine Ketones Negative Urine Blood Large H Urine Nitrate Negative Urine Bilirubin Negative Urine Urobilinogen 0.2 Ur Leukocyte Esterase Negative Urine RBC 5 - 10 Urine WBC 0 - 2 Ur Epithelial Cells 0 - 2 Other Crystals Cystine Blood Type Confirm A POSITIVE 06/24/18 06/24/18 06/24/18 06:45 06:45 06:45 WBC 18.0 H D RBC 5.06 Hgb 14.7 Hct 43.6 MCV 86.2 MCH 29.1 MCHC 33.7 RDW 13.3 Plt Count 219 MPV 9.6 Gran % 83.1 H Lymph % (Auto) 4.7 L [place] % (Auto) 8.4 H Eos % (Auto) 3.6 Baso % (Auto) 0.2 Gran # 14.99 H Lymph # (Auto) 0.9 L [place] # (Auto) 1.5 H Eos # (Auto) 0.6 Baso # (Auto) 0.03 Neutrophils % (Manual) 82 H Band Neutrophils % 1 Lymphocytes % (Manual) 5 L Monocytes % (Manual) 10 H Eosinophils % (Manual) 2 Sodium 134 Potassium 4.2 Chloride 99 Carbon Dioxide 27 Anion Gap 12 BUN 24 H Creatinine 1.2 Est GFR ( Amer) > 60 Est GFR (Non-Af Amer) 60 POC Glucose (mg/dL) Random Glucose 134 H Hemoglobin A1c 6.9 H Calcium 8.8 Total Bilirubin 0.9 AST 33 ALT 32 Alkaline Phosphatase 70 Total Protein 6.4 Albumin 3.6 Globulin 2.8 Albumin/Globulin Ratio 1.3 Triglycerides 101 Cholesterol 113 L LDL Cholesterol Direct 71 HDL Cholesterol 30 Urine Color Urine Appearance Urine pH Ur Specific [place] Urine Protein Urine Glucose (UA) Urine Ketones Urine Blood Urine Nitrate Urine Bilirubin Urine Urobilinogen Ur Leukocyte Esterase Urine RBC Urine WBC Ur Epithelial Cells Other Crystals Blood Type Confirm 06/24/18 10:47 WBC RBC Hgb Hct MCV MCH MCHC RDW Plt Count MPV Gran % Lymph % (Auto) [place] % (Auto) Eos % (Auto) Baso % (Auto) Gran # Lymph # (Auto) [place] # (Auto) Eos # (Auto) Baso # (Auto) Neutrophils % (Manual) Band Neutrophils % Lymphocytes % (Manual) Monocytes % (Manual) Eosinophils % (Manual) Sodium Potassium Chloride Carbon Dioxide Anion Gap BUN Creatinine Est GFR ( Amer) Est GFR (Non-Af Amer) POC Glucose (mg/dL) 189 H Random Glucose Hemoglobin A1c Calcium Total Bilirubin AST ALT Alkaline Phosphatase Total Protein Albumin Globulin Albumin/Globulin Ratio Triglycerides Cholesterol LDL Cholesterol Direct HDL Cholesterol Urine Color Urine Appearance Urine pH Ur Specific [place] Urine Protein Urine Glucose (UA) Urine Ketones Urine Blood Urine Nitrate Urine Bilirubin Urine Urobilinogen Ur Leukocyte Esterase Urine RBC Urine WBC Ur Epithelial Cells Other Crystals Blood Type Confirm Assessment & Plan - Assessment and Plan (Free Text) Assessment: 68 M with with PMHx of HTN, Mitral Valve Repair, and recent prostatectomy with incontinence admitted for perineal cellulitis. sepsis likely 2/2 perineal Cellulitis Prostatectomy NIDDM MVP HTN Urology consulted, Dr. Bustamante Zyvox / Merrem CT reviewed no evidence of paz's Fu BCx, Ucx will continue to monitor <Truong Marcum - Last Filed: 06/24/18 17:49> Meds - Medications Medications: Current Medications Heparin Sodium (Porcine) (Heparin) 5,000 units SC Q8 CHANDNI; Protocol Last Admin: 06/24/18 13:29 Dose: 5,000 units Meropenem (Merrem Iv 1 Gm Premix) 1 gm in 50 mls @ 100 mls/hr IVPB Q8 CHANDNI; Protocol Stop: 07/03/18 06:01 Last Admin: 06/24/18 13:29 Dose: 100 mls/hr Linezolid (Zyvox 600mg/300ml D5w) 600 mg in 300 mls @ 200 mls/hr IVPB Q12 CHANDNI; Protocol Stop: 07/02/18 22:23 Last Admin: 06/24/18 09:18 Dose: 200 mls/hr Insulin Human Regular (Humulin R Low) 0 units SC ACHS CHANDNI; Protocol Last Admin: 06/24/18 11:25 Dose: 1 units Lisinopril (Zestril) 10 mg PO DAILY CHANDNI Last Admin: 06/24/18 09:17 Dose: 10 mg Morphine Sulfate (Morphine) 1 mg IVP Q4H PRN PRN Reason: Pain, severe (8-10) Last Admin: 06/24/18 15:32 Dose: 1 mg Pantoprazole Sodium (Protonix Ec Tab) 40 mg PO ACB [facility] Petrolatum (Desitin Maximum Strength Topical 40% Oint) 0 gm TOP Q4H PRN PRN Reason: Rash Last Admin: 06/23/18 21:14 Dose: 1 applic Results - Vital Signs Recent Vital Signs: Last Vital Signs Temp 97.7 F 06/24/18 14:00 Pulse 88 06/24/18 14:00 Resp 20 06/24/18 14:00 BP 131/73 06/24/18 14:00 Pulse Ox 97 06/24/18 14:00 - Labs Result Diagrams: 06/24/18 06:45 06/24/18 06:45 Labs: Laboratory Results - last 24 hr 06/23/18 06/23/18 06/23/18 18:24 19:15 20:57 WBC RBC Hgb Hct MCV MCH MCHC RDW Plt Count MPV Gran % Lymph % (Auto) [place] % (Auto) Eos % (Auto) Baso % (Auto) Gran # Lymph # (Auto) [place] # (Auto) Eos # (Auto) Baso # (Auto) Neutrophils % (Manual) Band Neutrophils % Lymphocytes % (Manual) Monocytes % (Manual) Eosinophils % (Manual) Sodium Potassium Chloride Carbon Dioxide Anion Gap BUN Creatinine Est GFR ( Amer) Est GFR (Non-Af Amer) POC Glucose (mg/dL) 93 Random Glucose Hemoglobin A1c Calcium Total Bilirubin AST ALT Alkaline Phosphatase Total Protein Albumin Globulin Albumin/Globulin Ratio Triglycerides Cholesterol LDL Cholesterol Direct HDL Cholesterol Urine Color Yellow Urine Appearance Slight-cloudy Urine pH 6.5 Ur Specific [place] <= 1.005 Urine Protein Trace H Urine Glucose (UA) Negative Urine Ketones Negative Urine Blood Large H Urine Nitrate Negative Urine Bilirubin Negative Urine Urobilinogen 0.2 Ur Leukocyte Esterase Negative Urine RBC 5 - 10 Urine WBC 0 - 2 Ur Epithelial Cells 0 - 2 Other Crystals Cystine Blood Type Confirm A POSITIVE 06/24/18 06/24/18 06/24/18 06:45 06:45 06:45 WBC 18.0 H D RBC 5.06 Hgb 14.7 Hct 43.6 MCV 86.2 MCH 29.1 MCHC 33.7 RDW 13.3 Plt Count 219 MPV 9.6 Gran % 83.1 H Lymph % (Auto) 4.7 L [place] % (Auto) 8.4 H Eos % (Auto) 3.6 Baso % (Auto) 0.2 Gran # 14.99 H Lymph # (Auto) 0.9 L [place] # (Auto) 1.5 H Eos # (Auto) 0.6 Baso # (Auto) 0.03 Neutrophils % (Manual) 82 H Band Neutrophils % 1 Lymphocytes % (Manual) 5 L Monocytes % (Manual) 10 H Eosinophils % (Manual) 2 Sodium 134 Potassium 4.2 Chloride 99 Carbon Dioxide 27 Anion Gap 12 BUN 24 H Creatinine 1.2 Est GFR ( Amer) > 60 Est GFR (Non-Af Amer) 60 POC Glucose (mg/dL) Random Glucose 134 H Hemoglobin A1c 6.9 H Calcium 8.8 Total Bilirubin 0.9 AST 33 ALT 32 Alkaline Phosphatase 70 Total Protein 6.4 Albumin 3.6 Globulin 2.8 Albumin/Globulin Ratio 1.3 Triglycerides 101 Cholesterol 113 L LDL Cholesterol Direct 71 HDL Cholesterol 30 Urine Color Urine Appearance Urine pH Ur Specific [place] Urine Protein Urine Glucose (UA) Urine Ketones Urine Blood Urine Nitrate Urine Bilirubin Urine Urobilinogen Ur Leukocyte Esterase Urine RBC Urine WBC Ur Epithelial Cells Other Crystals Blood Type Confirm 06/24/18 06/24/18 10:47 15:55 WBC RBC Hgb Hct MCV MCH MCHC RDW Plt Count MPV Gran % Lymph % (Auto) [place] % (Auto) Eos % (Auto) Baso % (Auto) Gran # Lymph # (Auto) [place] # (Auto) Eos # (Auto) Baso # (Auto) Neutrophils % (Manual) Band Neutrophils % Lymphocytes % (Manual) Monocytes % (Manual) Eosinophils % (Manual) Sodium Potassium Chloride Carbon Dioxide Anion Gap BUN Creatinine Est GFR ( Amer) Est GFR (Non-Af Amer) POC Glucose (mg/dL) 189 H 136 H Random Glucose Hemoglobin A1c Calcium Total Bilirubin AST ALT Alkaline Phosphatase Total Protein Albumin Globulin Albumin/Globulin Ratio Triglycerides Cholesterol LDL Cholesterol Direct HDL Cholesterol Urine Color Urine Appearance Urine pH Ur Specific [place] Urine Protein Urine Glucose (UA) Urine Ketones Urine Blood Urine Nitrate Urine Bilirubin Urine Urobilinogen Ur Leukocyte Esterase Urine RBC Urine WBC Ur Epithelial Cells Other Crystals Blood Type Confirm Assessment & Plan - Assessment and Plan (Free Text) Assessment: Infectious diseases Attending Physician Attestation Patient seen and examined, discussed with medical staff credentialing coordinator. I have reviewed the patient's history of present illness, past medical, social, personal and family histories, pertinent physical exam findings, course so far in this hospital admission, pertinent laboratory and imaging results. I agree with the above findings, assessment and plan. In addition, will continue Zyvox and Merrem for this patient with perineal cellulitis in a patient just underwent prostatectomy. Reviewed CT A/P. Follow up blood cx and will monitor clinical response.
[2018-06-24] MEDS ORDERED: Morphine 2 mg/ml ISec IVP PRN (20:04)
[2018-06-24] MEDS ORDERED: HYDROmorphone 1 mg/ml ISec IVP STA (23:22)
[2018-06-25] MEDS: HYDROmorphone 1 mg/ml ISec IVP PRN ×4 (02:35→23:32)
[2018-06-25] MEDS: Morphine 2 mg/ml ISec IVP PRN ×3 (03:54→13:45)
[2018-06-25] MEDS: Meropenem IV 1 gm in NS 1 GM/50 ML BAG IVPB SCH ×3 (05:46→21:19)
[2018-06-25 07:58] LABS: BASO # 0.03 K/mm3 (0.0-2.0); BASO % 0.2 % (0.0-3.0); EOS # 0.9 (0.0-0.7); EOS % 7.7 % (1.5-5.0); GRAN # 8.5 (1.4-6.5); GRAN % 70.5 % (50.0-68.0); HEMOGLOBIN 14.4 g/dL (14.0-18.0); LYMPH # 1.5 (1.2-3.4); LYMPH % 12.7 % (22.0-35.0); MEAN CORPUSCULAR HEMOGLOBIN 28.8 pg (25.0-35.0); MEAN CORPUSCULAR HGB CONC 32.7 g/dl (31.0-37.0); MEAN PLATELET VOLUME 9.5 fl (7.0-11.0); MONO # 1.1 (0.1-0.6); MONO % 8.9 % (1.0-6.0); RED CELL DISTRIBUTION WIDTH 13.1 % (11.5-14.5); WHITE BLOOD COUNT 12.1 10^3/uL (4.5-11.0)
[2018-06-25] MEDS: Insulin Reg-LOW-Coverage SC SCH ×4 (08:28→21:18)
[2018-06-25 08:35] LABS: ALB/GLOB RATIO 1.2 (1.1-1.8); ALBUMIN 3.5 g/dL (3.0-4.8); ALT/SGPT 25 U/L (7-56); AST/SGOT 30 U/L (17-59); BLOOD UREA NITROGEN 20 mg/dL (7-21); CALCIUM 8.5 mg/dL (8.4-10.5); GFR NON-AFRICAN AMERICAN 60
[2018-06-25] MEDS: Pantoprazole 40 mg EC Tab PO SCH (09:05)
[2018-06-25] MEDS: Linezolid 600 mg in D5W 300 ml 600 MG/300 ML BAG IVPB SCH ×2 (09:06→21:53)
--- NOTE | 2018-06-25 18:49 | CP.PCM.PN ---
<Marc Miller - Last Filed: 06/25/18 18:58> Subjective - Date & Time of Evaluation Date of Evaluation: 06/25/18 Time of Evaluation: 18:46 - Subjective Subjective: Marc Miller, PGY-1, Internal Medicine Progress Note for Dr. Barcenas Patient seen and evaluated at bedside. Patient had no acute overnight events. Patient continues to complain of incontinence episodes, and painful and erythematous scrotum. Patient denies fever, nausea, vomiting, chest pain, shortness of breath, constipation, diarrhea, dysuria, and hematuria. 12-point ROS was negative except for what was mentioned above. Objective - Vital Signs/Intake and Output Vital Signs (last 24 hours): Temp Pulse Resp BP Pulse Ox 98.2 F 82 18 123/95 H 94 L 06/25/18 16:42 06/25/18 16:42 06/25/18 16:42 06/25/18 16:42 06/25/18 16:42 Intake and Output: 06/25/18 06/25/18 06:59 18:59 Intake Total 620 Balance 620 - Medications Medications: Current Medications Heparin Sodium (Porcine) (Heparin) 5,000 units SC Q8 [facility]; Protocol Last Admin: 06/25/18 13:45 Dose: 5,000 units Hydromorphone HCl (Dilaudid) 1 mg IVP Q4H PRN PRN Reason: Pain, severe (8-10) Last Admin: 06/25/18 17:58 Dose: 1 mg Meropenem (Merrem Iv 1 Gm Premix) 1 gm in 50 mls @ 100 mls/hr IVPB Q8 [facility]; Protocol Stop: 07/03/18 06:01 Last Admin: 06/25/18 13:45 Dose: 100 mls/hr Linezolid (Zyvox 600mg/300ml D5w) 600 mg in 300 mls @ 200 mls/hr IVPB Q12 [facility]; Protocol Stop: 07/02/18 22:23 Last Admin: 06/25/18 09:06 Dose: 200 mls/hr Insulin Human Regular (Humulin R Low) 0 units SC ACHS [facility]; Protocol Last Admin: 06/25/18 16:45 Dose: Not Given Lisinopril (Zestril) 10 mg PO DAILY [facility] Last Admin: 06/25/18 09:05 Dose: 10 mg Morphine Sulfate (Morphine) 3 mg IVP Q4H PRN PRN Reason: Pain, moderate (4-7) Last Admin: 06/25/18 13:45 Dose: 3 mg Pantoprazole Sodium (Protonix Ec Tab) 40 mg PO ACB [facility] Last Admin: 06/25/18 09:05 Dose: 40 mg Petrolatum (Desitin Maximum Strength Topical 40% Oint) 0 gm TOP Q4H PRN PRN Reason: Rash Last Admin: 06/23/18 21:14 Dose: 1 applic - Labs Labs: 06/25/18 06:40 06/25/18 06:40 PT 13.0 SECONDS (9.4-12.5) H 06/23/18 13:00 INR 1.13 06/23/18 13:00 APTT 28.1 Seconds (25.1-36.5) 06/23/18 13:00 - Constitutional Appears: Well, Non-toxic, No Acute Distress - Head Exam Head Exam: ATRAUMATIC, NORMAL INSPECTION, NORMOCEPHALIC - Eye Exam Eye Exam: EOMI Pupil Exam: PERRL - Respiratory Exam Respiratory Exam: Clear to Ausculation Bilateral, NORMAL BREATHING PATTERN - Cardiovascular Exam Cardiovascular Exam: REGULAR RHYTHM, RRR - GI/Abdominal Exam GI & Abdominal Exam: Soft, Normal Bowel Sounds. absent: Tenderness - Exam Exam: Circumcision, Scrotal Swelling, Testicular Tenderness. absent: Uretheral Discharge External exam: Erythema Additional comments: retracted penis - Extremities Exam Extremities Exam: Full ROM - Neurological Exam Neurological Exam: Alert, Awake, CN II-XII Intact, Oriented x3 - Skin Skin Exam: Erythema (along inguinal folds) Assessment and Plan - Assessment and Plan (Free Text) Assessment: 68 year old male with past medical history of hypertension, left inguinal hernia, noninsulin dependent diabetes (HgbA1c 7.0 1 month ago), presents with extreme pain and burning in perineal area and inguinal folds. Patient has been incontinent for 5 days status post prostatectomy surgery 10 days ago Plan: Erythematous scrotum and inguinal area likely 2/2 to cellulitis -Likely secondary to area soaked in urine because of patient's recent incontinence and excoriations around the area. -Blood cultures are negative for 48 hours. Urine culture ordered. -Patient currently has leukocytosis at 12.1. Patient does not fulfill sepsis criteria. -As per ID, continue with linezolid and merrem -Continue with desitin cream for affected area. -Morphine 3 mg Q4, dilaudid 1 mg Q4PRN for pain Retracted Penis with urinary incontinence -Likely secondary to inflammation from recent surgery or recent infection -Patient currently incontinent secondary to prostatectomy. -Condition possibly caused by excess fat, fluid retention, and problems with ligaments post surgery. -As per Dr. Jefferson, avitia catheter will be placed for patient for incontinence. -As per surgery, Dr. Olguin, no surgical intervention at this time Hypertension -Systolic blood pressure ranged from 116-123 today. -Continue home zestril Non insulin dependent Diabetes Mellitus -Glucose has ranged from 94-175 today. -HgbA1c was 6.9 -Accuchecks Q6 -Consistent carbohydrate diet -Low dose sliding scale insulin continued DVT prophylaxis: heparin 5000 U daily GI prophylaxis: protonix 40 mg daily Patient plan discussed with Dr. Barcenas <Shamir Barcenas - Last Filed: 06/26/18 06:53> Objective - Vital Signs/Intake and Output Vital Signs (last 24 hours): Temp Pulse Resp BP Pulse Ox 98.5 F 80 18 125/92 H 95 06/25/18 22:22 06/25/18 22:22 06/25/18 22:22 06/25/18 22:22 06/25/18 22:22 Intake and Output: 06/25/18 06/26/18 18:59 06:59 Intake Total 300 Balance 300 - Medications Medications: Current Medications Heparin Sodium (Porcine) (Heparin) 5,000 units SC Q8 [facility]; Protocol Last Admin: 06/26/18 06:09 Dose: 5,000 units Hydromorphone HCl (Dilaudid) 1 mg IVP Q4H PRN PRN Reason: Pain, severe (8-10) Last Admin: 06/26/18 03:27 Dose: 1 mg Meropenem (Merrem Iv 1 Gm Premix) 1 gm in 50 mls @ 100 mls/hr IVPB Q8 [facility]; Protocol Stop: 07/03/18 06:01 Last Admin: 06/26/18 06:08 Dose: 100 mls/hr Linezolid (Zyvox 600mg/300ml D5w) 600 mg in 300 mls @ 200 mls/hr IVPB Q12 [facility]; Protocol Stop: 07/02/18 22:23 Last Admin: 06/25/18 21:53 Dose: 200 mls/hr Insulin Human Regular (Humulin R Low) 0 units SC ACHS [facility]; Protocol Last Admin: 06/25/18 21:18 Dose: Not Given Lisinopril (Zestril) 10 mg PO DAILY [facility] Last Admin: 06/25/18 09:05 Dose: 10 mg Morphine Sulfate (Morphine) 3 mg IVP Q4H PRN PRN Reason: Pain, moderate (4-7) Last Admin: 06/25/18 13:45 Dose: 3 mg Pantoprazole Sodium (Protonix Ec Tab) 40 mg PO ACB [facility] Last Admin: 06/25/18 09:05 Dose: 40 mg Petrolatum (Desitin Maximum Strength Topical 40% Oint) 0 gm TOP Q4H PRN PRN Reason: Rash Last Admin: 06/23/18 21:14 Dose: 1 applic - Labs Labs: 06/25/18 06:40 06/25/18 06:40 PT 13.0 SECONDS (9.4-12.5) H 06/23/18 13:00 INR 1.13 06/23/18 13:00 APTT 28.1 Seconds (25.1-36.5) 06/23/18 13:00 Attending/Attestation - Attestation I have personally seen and examined this patient.: Yes I have fully participated in the care of the patient.: Yes I have reviewed all pertinent clinical information, including history, physical exam and plan: Yes Notes (Text): 06/25/18 68 year old male with past medical history of hypertension, diabetes, and recent prostatectomy surgery who presented with scrotal / perineal cellulitis. CT scan was reviewed. ID and urology evaluation are following. Continue with iv antibiotics. He is awaiting on avitia insertion by urology. Follow up on cultures. He is on insulin ss for diabetes. Shamir Barcenas MD Hospitalist.
[2018-06-26] MEDS: HYDROmorphone 1 mg/ml ISec IVP PRN ×5 (03:27→20:37)
[2018-06-26] MEDS: Meropenem IV 1 gm in NS 1 GM/50 ML BAG IVPB SCH ×3 (06:08→21:21)
[2018-06-26 07:11] LABS: BASO # 0.02 K/mm3 (0.0-2.0); BASO % 0.2 % (0.0-3.0); EOS # 0.7 (0.0-0.7); EOS % 7.1 % (1.5-5.0); GRAN # 6.64 (1.4-6.5); GRAN % 68.9 % (50.0-68.0); HEMOGLOBIN 15.2 g/dL (14.0-18.0); LYMPH # 1.5 (1.2-3.4); LYMPH % 15.1 % (22.0-35.0); MEAN CORPUSCULAR HGB CONC 33.3 g/dl (31.0-37.0); MEAN PLATELET VOLUME 9.5 fl (7.0-11.0); MONO # 0.8 (0.1-0.6); MONO % 8.7 % (1.0-6.0); RBC 5.25 10^6/uL (3.5-6.1); RED CELL DISTRIBUTION WIDTH 12.8 % (11.5-14.5); WHITE BLOOD COUNT 9.6 10^3/uL (4.5-11.0)
[2018-06-26 07:43] LABS: ALB/GLOB RATIO 1.2 (1.1-1.8); ALBUMIN 3.6 g/dL (3.0-4.8); ALT/SGPT 24 U/L (7-56); AST/SGOT 18 U/L (17-59); BLOOD UREA NITROGEN 16 mg/dL (7-21); CALCIUM 8.9 mg/dL (8.4-10.5); GFR NON-AFRICAN AMERICAN 60
[2018-06-26] MEDS: Pantoprazole 40 mg EC Tab PO SCH (07:53)
[2018-06-26] MEDS: Insulin Reg-LOW-Coverage SC SCH ×4 (07:53→22:00)
[2018-06-26] MEDS: Linezolid 600 mg in D5W 300 ml 600 MG/300 ML BAG IVPB SCH ×2 (10:21→21:45)
--- NOTE | 2018-06-26 14:23 | PN ---
DATE: 06/26/2018 SUBJECTIVE: The patient is in bed, in no acute distress. He is seen earlier today in room 566, bed 1. No fevers and no chills. PHYSICAL EXAMINATION: VITAL SIGNS: Temperature is 98, blood pressure is 120/90, respiratory rate 18, heart rate of 80. Examination of HEENT is unremarkable. NECK: Supple. LUNGS: Have decreased breath sounds. HEART: Normal S1 and S2. ABDOMEN: Soft, nontender. LABORATORY EXAMINATION: Reveals a white count of 9.6, hemoglobin of 15, platelets of 248. Chemistries are noted to be on 07/03/2018, creatinine of 1.2. Urinalysis is noted. Microbiology reveals the blood cultures are negative. Urine cultures are negative. Review of orders reveals the patient to be on meropenem and Zyvox. ASSESSMENT AND PLAN: A 68-year-old male who was seen earlier today in room 566, bed 1 who has a history of diabetes, hypertension, left inguinal hernia with mitral valve repair, recent prostatectomy, incontinence, admitted with perineal cellulitis with sepsis and with a history of diabetes and prostatectomy, on Zyvox and meropenem. 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 Thus far, the blood and urine cultures are negative and we will follow with you. Cristóbal Prasad MD
[2018-06-26 14:47] LABS: BLOOD UREA NITROGEN 17 mg/dL (7-21); CALCIUM 8.8 mg/dL (8.4-10.5); GFR NON-AFRICAN AMERICAN 60
--- NOTE | 2018-06-26 16:20 | CP.PCM.PN ---
<Marc Miller - Last Filed: 06/26/18 15:54> Subjective - Date & Time of Evaluation Date of Evaluation: 06/26/18 Time of Evaluation: 15:54 - Subjective Subjective: Marc Miller, PGY-1, Internal Medicine Progress Note for Dr. Barcenas Patient seen and evaluated at bedside. Patient had no acute overnight events. Patient continues to complain of incontinence episodes but reports it has mildly improved, and has improved painful and erythematous scrotum. Patient denies fever, nausea, vomiting, chest pain, shortness of breath, constipation, diarrhea, dysuria, and hematuria. 12-point ROS was negative except for what was mentioned above. Objective - Vital Signs/Intake and Output Vital Signs (last 24 hours): Temp Pulse Resp BP Pulse Ox 98 F 77 20 134/85 94 L 06/26/18 06:00 06/26/18 06:00 06/26/18 06:00 06/26/18 06:00 06/26/18 06:00 Intake and Output: 06/26/18 06/26/18 06:59 18:59 Intake Total 300 Balance 300 - Medications Medications: Current Medications Heparin Sodium (Porcine) (Heparin) 5,000 units SC Q8 [facility]; Protocol Last Admin: 06/26/18 15:05 Dose: 5,000 units Hydromorphone HCl (Dilaudid) 1 mg IVP Q4H PRN PRN Reason: Pain, severe (8-10) Last Admin: 06/26/18 12:18 Dose: 1 mg Meropenem (Merrem Iv 1 Gm Premix) 1 gm in 50 mls @ 100 mls/hr IVPB Q8 [facility]; Protocol Stop: 07/03/18 06:01 Last Admin: 06/26/18 15:05 Dose: 100 mls/hr Linezolid (Zyvox 600mg/300ml D5w) 600 mg in 300 mls @ 200 mls/hr IVPB Q12 [facility]; Protocol Stop: 07/02/18 22:23 Last Admin: 06/26/18 10:21 Dose: 200 mls/hr Insulin Human Regular (Humulin R Low) 0 units SC ACHS [facility]; Protocol Last Admin: 06/26/18 12:00 Dose: Not Given Lisinopril (Zestril) 10 mg PO DAILY [facility] Last Admin: 06/25/18 09:05 Dose: 10 mg Morphine Sulfate (Morphine) 3 mg IVP Q4H PRN PRN Reason: Pain, moderate (4-7) Last Admin: 06/25/18 13:45 Dose: 3 mg Pantoprazole Sodium (Protonix Ec Tab) 40 mg PO ACB [facility] Last Admin: 06/26/18 07:53 Dose: 40 mg Petrolatum (Desitin Maximum Strength Topical 40% Oint) 0 gm TOP Q4H PRN PRN Reason: Rash Last Admin: 06/23/18 21:14 Dose: 1 applic Polyethylene Glycol (Miralax) 17 gm PO BID [facility] - Labs Labs: 06/26/18 06:00 06/26/18 14:15 PT 13.0 SECONDS (9.4-12.5) H 06/23/18 13:00 INR 1.13 06/23/18 13:00 APTT 28.1 Seconds (25.1-36.5) 06/23/18 13:00 - Constitutional Appears: Well, Non-toxic, No Acute Distress - Head Exam Head Exam: ATRAUMATIC, NORMAL INSPECTION, NORMOCEPHALIC - Eye Exam Eye Exam: EOMI, PERRL - Respiratory Exam Respiratory Exam: Clear to Ausculation Bilateral, NORMAL BREATHING PATTERN - Cardiovascular Exam Cardiovascular Exam: REGULAR RHYTHM - GI/Abdominal Exam GI & Abdominal Exam: Normal Bowel Sounds - Extremities Exam Extremities Exam: Full ROM - Neurological Exam Neurological Exam: Alert, Awake, CN II-XII Intact, Oriented x3 Assessment and Plan - Assessment and Plan (Free Text) Assessment: 68 year old male with past medical history of hypertension, left inguinal hernia, noninsulin dependent diabetes (HgbA1c 7.0 1 month ago), presents with extreme pain and burning in perineal area and inguinal folds. Patient has been incontinent for 6 days status post prostatectomy surgery 11 days ago Plan: Erythematous scrotum and inguinal area likely 2/2 to cellulitis -Likely secondary to area soaked in urine because of patient's recent incontinence and excoriations around the area. -Blood cultures are negative for 72 hours. Urine culture negative. -Patient currently has resolved leukocytosis at 9.6. Patient does not fulfill sepsis criteria. -As per ID, continue with linezolid day 4 and merrem day 3. -Continue with desitin cream for affected area. -Morphine 3 mg Q4, dilaudid 1 mg Q4PRN for pain Retracted Penis with urinary incontinence -Likely secondary to inflammation from recent surgery or recent infection -Patient currently incontinent secondary to prostatectomy. -Condition possibly caused by excess fat, fluid retention, and problems with ligaments post surgery. -As per Dr. Jefferson, avitia catheter will be placed for patient for incontinence. -As per surgery, Dr. Olguin, no surgical intervention at this time -Patient will need likely follow up with surgeon who performed prostatectomy for revision of urethra outpatient. Constipation -Miralax started today. Hypertension -BP: 134/85 -Home zestril held due to hyperkalemia Hyperkalemia -K: 5.3 -Home zestril held due to hyperkalemia. Non insulin dependent Diabetes Mellitus -Glucose has ranged from 132-188 today. -HgbA1c was 6.9 -Accuchecks Q6 -Consistent carbohydrate diet -Low dose sliding scale insulin continued DVT prophylaxis: heparin 5000 U daily GI prophylaxis: protonix 40 mg daily Patient plan discussed with Dr. Barcenas <Shamir Barcenas - Last Filed: 06/26/18 17:07> Objective - Vital Signs/Intake and Output Vital Signs (last 24 hours): Temp Pulse Resp BP Pulse Ox 98 F 77 20 134/85 94 L 06/26/18 06:00 06/26/18 06:00 06/26/18 06:00 06/26/18 06:00 06/26/18 06:00 Intake and Output: 06/26/18 06/26/18 06:59 18:59 Intake Total 300 Balance 300 - Medications Medications: Current Medications Heparin Sodium (Porcine) (Heparin) 5,000 units SC Q8 [facility]; Protocol Last Admin: 06/26/18 15:05 Dose: 5,000 units Hydromorphone HCl (Dilaudid) 1 mg IVP Q4H PRN PRN Reason: Pain, severe (8-10) Last Admin: 06/26/18 16:40 Dose: 1 mg Meropenem (Merrem Iv 1 Gm Premix) 1 gm in 50 mls @ 100 mls/hr IVPB Q8 [facility]; Protocol Stop: 07/03/18 06:01 Last Admin: 06/26/18 15:05 Dose: 100 mls/hr Linezolid (Zyvox 600mg/300ml D5w) 600 mg in 300 mls @ 200 mls/hr IVPB Q12 [facility]; Protocol Stop: 07/02/18 22:23 Last Admin: 06/26/18 10:21 Dose: 200 mls/hr Insulin Human Regular (Humulin R Low) 0 units SC ACHS [facility]; Protocol Last Admin: 06/26/18 16:41 Dose: 1 units Lisinopril (Zestril) 10 mg PO DAILY [facility] Last Admin: 06/25/18 09:05 Dose: 10 mg Morphine Sulfate (Morphine) 3 mg IVP Q4H PRN PRN Reason: Pain, moderate (4-7) Last Admin: 06/25/18 13:45 Dose: 3 mg Pantoprazole Sodium (Protonix Ec Tab) 40 mg PO ACB [facility] Last Admin: 06/26/18 07:53 Dose: 40 mg Petrolatum (Desitin Maximum Strength Topical 40% Oint) 0 gm TOP Q4H PRN PRN Reason: Rash Last Admin: 06/23/18 21:14 Dose: 1 applic Polyethylene Glycol (Miralax) 17 gm PO BID [facility] Last Admin: 06/26/18 16:42 Dose: 17 gm - Labs Labs: 06/26/18 06:00 06/26/18 14:15 PT 13.0 SECONDS (9.4-12.5) H 06/23/18 13:00 INR 1.13 06/23/18 13:00 APTT 28.1 Seconds (25.1-36.5) 06/23/18 13:00 Attending/Attestation - Attestation I have personally seen and examined this patient.: Yes I have fully participated in the care of the patient.: Yes I have reviewed all pertinent clinical information, including history, physical exam and plan: Yes Notes (Text): 06/26/18 17:06 68 year old male with past medical history of hypertension, diabetes, and recent prostatectomy surgery who presented with scrotal / perineal cellulitis. CT scan was reviewed. ID and urology are following. Continue with iv antibiotics. Cultures have been negative. Leukocytosis has improved today. He is awaiting on avitia insertion by urology. He is on insulin ss for diabetes. Miralax started for constipation. Shamir Barcenas MD Hospitalist.
[2018-06-26] MEDS: POLYETHYLENE GLYCOL 3350 17 GM/Dose PACKET PO SCH ×2 (16:42→18:00)
[2018-06-27] MEDS: HYDROmorphone 1 mg/ml ISec IVP PRN ×5 (00:36→17:01)
[2018-06-27] MEDS: Meropenem IV 1 gm in NS 1 GM/50 ML BAG IVPB SCH ×2 (05:22→14:00)
[2018-06-27 07:09] LABS: BASO # 0.02 K/mm3 (0.0-2.0); BASO % 0.2 % (0.0-3.0); EOS # 0.5 (0.0-0.7); EOS % 6.1 % (1.5-5.0); GRAN # 6.17 (1.4-6.5); GRAN % 71.2 % (50.0-68.0); HEMOGLOBIN 16.3 g/dL (14.0-18.0); LYMPH # 1.4 (1.2-3.4); LYMPH % 16.2 % (22.0-35.0); MEAN CELL VOLUME 86.3 fl (80.0-105.0); MEAN CORPUSCULAR HEMOGLOBIN 29.4 pg (25.0-35.0); MEAN PLATELET VOLUME 9.5 fl (7.0-11.0); MONO # 0.6 (0.1-0.6); MONO % 6.3 % (1.0-6.0); RBC 5.55 10^6/uL (3.5-6.1); RED CELL DISTRIBUTION WIDTH 12.7 % (11.5-14.5); WHITE BLOOD COUNT 8.7 10^3/uL (4.5-11.0)
[2018-06-27 07:31] LABS: ALB/GLOB RATIO 1.2 (1.1-1.8); ALT/SGPT 25 U/L (7-56); AST/SGOT 24 U/L (17-59); BLOOD UREA NITROGEN 17 mg/dL (7-21); CALCIUM 9.1 mg/dL (8.4-10.5); GFR NON-AFRICAN AMERICAN > 60
--- NOTE | 2018-06-27 07:48 | PN ---
DATE: 06/25/2018 SUBJECTIVE: The patient is in bed, in no acute distress. PHYSICAL EXAMINATION: VITAL SIGNS: Temperature is 98, blood pressure is 120/70, respiratory rate 16, heart rate of 88. HEENT: Unremarkable. NECK: Supple. LUNGS: Have decreased breath sounds. HEART: Normal S1, S2. ABDOMEN: Soft, nontender. LABORATORY EXAMINATION: Reveals the patient's white count is down from 18,000 to 4,000. Chemistries are noted, and urinalysis is reviewed. Microbiology reveals blood cultures are negative, urine cultures are negative. ASSESSMENT AND PLAN: A 68-year-old male with past medical history of hypertension, mitral valve repair, recent prostatectomy, perineal cellulitis, sepsis, perineal cellulitis and prostatectomy, diabetic, mitral valve prolapse, currently on Zyvox and meropenem. No evidence of Karan's on CAT scan. Review of orders reveals that the patient to be on meropenem and Zyvox, and blood cultures and urine cultures are negative. We will follow closely with you. Cristóbal Prasad MD
[2018-06-27] MEDS: Insulin Reg-LOW-Coverage SC SCH ×3 (08:40→17:02)
[2018-06-27] MEDS: Pantoprazole 40 mg EC Tab PO SCH (08:40)
[2018-06-27] MEDS: Linezolid 600 mg in D5W 300 ml 600 MG/300 ML BAG IVPB SCH (09:26)
[2018-06-27] MEDS: POLYETHYLENE GLYCOL 3350 17 GM/Dose PACKET PO SCH ×2 (09:27→17:01)
[2018-06-27 10:39] VITALS: RESP 20
--- NOTE | 2018-06-27 11:18 | CP.PCM.PN ---
<Marek Lorenzo - Last Filed: 06/27/18 17:04> Subjective - Date & Time of Evaluation Date of Evaluation: 06/27/18 Time of Evaluation: 08:45 - Subjective Subjective: ID Progress Note - Dr. Marcum Patient seen and examined at bedside. As per nursing staff, no acute or adverse events overnight. Patient notes improvement of his symptoms, less pain and less erythema to the region. He denied fever, nausea, vomiting, chest pain, shortness of breath, constipation, diarrhea, dysuria, and hematuria. He has set an appointment with his urologist for 07/06/18. Objective - Vital Signs/Intake and Output Vital Signs (last 24 hours): Temp Pulse Resp BP Pulse Ox 97.6 F 72 20 159/91 H 95 06/27/18 06:00 06/27/18 06:00 06/27/18 06:00 06/27/18 06:00 06/27/18 06:00 Intake and Output: 06/27/18 06/27/18 06:59 18:59 Intake Total 1110 Balance 1110 - Medications Medications: Current Medications Heparin Sodium (Porcine) (Heparin) 5,000 units SC Q8 [facility]; Protocol Last Admin: 06/27/18 05:22 Dose: 5,000 units Hydromorphone HCl (Dilaudid) 1 mg IVP Q4H PRN PRN Reason: Pain, severe (8-10) Last Admin: 06/27/18 08:39 Dose: 1 mg Meropenem (Merrem Iv 1 Gm Premix) 1 gm in 50 mls @ 100 mls/hr IVPB Q8 [facility]; Protocol Stop: 07/03/18 06:01 Last Admin: 06/27/18 05:22 Dose: 100 mls/hr Linezolid (Zyvox 600mg/300ml D5w) 600 mg in 300 mls @ 200 mls/hr IVPB Q12 [facility]; Protocol Stop: 07/02/18 22:23 Last Admin: 06/27/18 09:26 Dose: 200 mls/hr Insulin Human Regular (Humulin R Low) 0 units SC ACHS [facility]; Protocol Last Admin: 06/27/18 08:40 Dose: 1 units Lisinopril (Zestril) 10 mg PO DAILY [facility] Last Admin: 06/25/18 09:05 Dose: 10 mg Morphine Sulfate (Morphine) 3 mg IVP Q4H PRN PRN Reason: Pain, moderate (4-7) Last Admin: 06/25/18 13:45 Dose: 3 mg Pantoprazole Sodium (Protonix Ec Tab) 40 mg PO ACB [facility] Last Admin: 06/27/18 08:40 Dose: 40 mg Petrolatum (Desitin Maximum Strength Topical 40% Oint) 0 gm TOP Q4H PRN PRN Reason: Rash Last Admin: 06/23/18 21:14 Dose: 1 applic Polyethylene Glycol (Miralax) 17 gm PO BID [facility] Last Admin: 06/27/18 09:27 Dose: 17 gm - Labs Labs: 06/27/18 06:30 06/27/18 06:30 PT 13.0 SECONDS (9.4-12.5) H 06/23/18 13:00 INR 1.13 06/23/18 13:00 APTT 28.1 Seconds (25.1-36.5) 06/23/18 13:00 - Constitutional Appears: No Acute Distress - Head Exam Head Exam: ATRAUMATIC, NORMAL INSPECTION, NORMOCEPHALIC - Eye Exam Eye Exam: EOMI, Normal appearance, PERRL Pupil Exam: NORMAL ACCOMODATION, PERRL - ENT Exam ENT Exam: Mucous Membranes Moist, Normal Exam - Respiratory Exam Respiratory Exam: Clear to Ausculation Bilateral, NORMAL BREATHING PATTERN - Cardiovascular Exam Cardiovascular Exam: REGULAR RHYTHM, +S1, +S2. absent: Murmur - GI/Abdominal Exam GI & Abdominal Exam: Soft, Normal Bowel Sounds. absent: Tenderness - Exam Additional comments: Swollen scrotum, improved from previously, less erythema to the scrotum - Extremities Exam Extremities Exam: Full ROM, Normal Capillary Refill, Normal Inspection. absent: Joint Swelling, Pedal Edema - Back Exam Back Exam: NORMAL INSPECTION - Neurological Exam Neurological Exam: Alert, Awake, CN II-XII Intact, Normal Gait, Oriented x3 - Psychiatric Exam Psychiatric exam: Normal Affect, Normal Mood - Skin Skin Exam: Dry, Intact, Normal Color, Warm Assessment and Plan - Assessment and Plan (Free Text) Assessment: 68 M with with PMHx of HTN, Mitral Valve Repair, and recent prostatectomy with incontinence admitted for perineal cellulitis. sepsis likely 2/2 perineal Cellulitis, clinically improving Leukocytosis resolved Prostatectomy NIDDM MVP HTN Urology consulted, Dr. Bustamante, no avitia at this time will continue Zyvox and Merrem for perineal cellulitis s/p prostatectomy. Reviewed CT A/P. Follow up blood cx resulted negative as well as urine cx and will monitor clinical response. CT reviewed no evidence of paz's will continue to monitor <Truong Marcum S - Last Filed: 06/27/18 21:03> Objective - Vital Signs/Intake and Output Vital Signs (last 24 hours): Temp Pulse Resp BP Pulse Ox 98 F 77 20 153/93 H 94 L 06/27/18 14:00 06/27/18 14:00 06/27/18 14:00 06/27/18 14:00 06/27/18 14:00 - Medications Medications: Current Medications Heparin Sodium (Porcine) (Heparin) 5,000 units SC Q8 [facility]; Protocol Last Admin: 06/27/18 15:16 Dose: 5,000 units Hydromorphone HCl (Dilaudid) 1 mg IVP Q4H PRN PRN Reason: Pain, severe (8-10) Last Admin: 06/27/18 17:01 Dose: 1 mg Meropenem (Merrem Iv 1 Gm Premix) 1 gm in 50 mls @ 100 mls/hr IVPB Q8 [facility]; Protocol Stop: 07/03/18 06:01 Last Admin: 06/27/18 14:00 Dose: 100 mls/hr Linezolid (Zyvox 600mg/300ml D5w) 600 mg in 300 mls @ 200 mls/hr IVPB Q12 [facility]; Protocol Stop: 07/02/18 22:23 Last Admin: 06/27/18 09:26 Dose: 200 mls/hr Insulin Human Regular (Humulin R Low) 0 units SC ACHS [facility]; Protocol Last Admin: 06/27/18 17:02 Dose: Not Given Lisinopril (Zestril) 10 mg PO DAILY [facility] Last Admin: 06/25/18 09:05 Dose: 10 mg Morphine Sulfate (Morphine) 3 mg IVP Q4H PRN PRN Reason: Pain, moderate (4-7) Last Admin: 06/25/18 13:45 Dose: 3 mg Pantoprazole Sodium (Protonix Ec Tab) 40 mg PO ACB [facility] Last Admin: 06/27/18 08:40 Dose: 40 mg Petrolatum (Desitin Maximum Strength Topical 40% Oint) 0 gm TOP Q4H PRN PRN Reason: Rash Last Admin: 06/23/18 21:14 Dose: 1 applic Polyethylene Glycol (Miralax) 17 gm PO BID [facility] Last Admin: 06/27/18 17:01 Dose: 17 gm - Labs Labs: 06/27/18 06:30 06/27/18 06:30 PT 13.0 SECONDS (9.4-12.5) H 06/23/18 13:00 INR 1.13 06/23/18 13:00 APTT 28.1 Seconds (25.1-36.5) 06/23/18 13:00 Assessment and Plan - Assessment and Plan (Free Text) Assessment: Infectious diseases Attending Physician Attestation Patient seen and examined, discussed with certified medical technician assistant. I have reviewed the patient's history of present illness, past medical, social, personal and family histories, pertinent physical exam findings, course so far in this hospital admission, pertinent laboratory and imaging results. I agree with the above findings, assessment and plan. In addition, will continue Zyvox and Merrem for perineal cellulitis. Can switch to PO Zyvox, Vantin and Flagyl for another 7-10 days when ready for discharge.
--- NOTE | 2018-06-27 11:38 | PN ---
DATE: 06/24/2018 SUBJECTIVE: See previous consult note from 06/23/2018, today's date is 06/24/2018. CT scan official report, there is no air. General surgery is also seeing the patient. From Neurology standpoint, that is similar to findings of yesterday. No major changes. PAST MEDICAL AND SURGICAL HISTORY: As listed. PHYSICAL EXAMINATION: There is no change, no worse. DIAGNOSES: 1. Urinary retention. 2. What appears to be dermatitis of the skin. ASSESSMENT AND PLAN: My recommendation will be to insert a Benedict catheter, I discussed this with the patient. We will ask the nurses to insert the Benedict catheter. Just not that he is in retention, no evidence of on CT scan but just to keep the area clean and dry. PLAN: Further plans will follow. Continue his both again. I will consider Dermatology consult and then also the plan the patient to return to his primary urologist to see if recommendation, again he had a surgery in [place] and the was related to the surgical procedure. As per the patient's history, he reports prior to the procedure, no major incontinence. Therefore, we are going to recommend that he return to his primary surgeon who will therefore make recommendations and plan. I received the phone call from the patient after the fact that his primary urologist had recommended that only a urologist insert the Benedict catheter through his urethra. Therefore, at this point, he prefers there is no way out to insert the catheter. So I will discuss that and plan for him. I discussed with him that the next time I am in the hospital, if he wants, I will insert the catheter. In the interim, he may consider using a condom catheter or he could even again consider not having any catheter since he is emptying his bladder well. We will discuss this further, but I did offer him the next time we come in, we will offer inserting a Benedict catheter. I did offer also that I do think that the nursing staff would be able to try Jevity, insert a Benedict catheter and if they run into difficulty that will be a different story. Although I did discuss with the fresh anastomosis, but it is at this point already quite sometime of healing. So I told him if he is interested now. Gabe Jefferson MD
--- NOTE | 2018-06-27 12:31 | PN ---
DATE: 06/27/2018 UROLOGY PROGRESS NOTE Please see my previously dictated note and . Very pleasant gentleman who has a history of status post radical prostatectomy, which was done in with robotic surgery and it further appears urinary incontinence. Initially, we discussed this with . catheter insertion. At this point, he appearing well. He is on antibiotics and he is no longer interested in the catheter. the catheter was to keep the housekeeping cleaner because of incontinence. That is not to be urinary retention based on the CT scan. So at this point . Patient is directed to the hospital, he is currently eating breakfast. he cannot have anything further as it . . No other changes. PHYSICAL EXAMINATION: ABDOMEN: A little soft. No no discharge. The groin is much, much, much improved. There are still some areas of erythema . DIAGNOSES: Prostatectomy with urinary incontinence and skin cellulitis/dermatitis. As before, the recommendation was to to consider getting a Dermatology consult and input. From Urology standpoint, there is nothing further at this point. He does not want a catheter, I suggested to him he goes back to his primary urologist to begin with . He was planning to call there today. I discussed with the patient that if he needs anything further, he should call me back directly. I have given him my phone number. And then further plans will follow. Gabe Jefferson MD
[2018-06-27 14:52] VITALS: BP 153/93; PULSE 77; TEMP 98; O2SAT 94
--- NOTE | 2018-06-27 18:17 | CP.PCM.DIS ---
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 Physician Consult Routine Comment: Consulting Provider: Shashi Jefferson Consulting Physician: Shashi Jefferson Reason for Consult: perineal cellulitis and incontinence s/p prostatectomy 06/23/18 20:35 Infectious Disease Consult Routine Comment: Consulting Provider: Truong Marcum Consulting Physician: Truong Marcum Reason for Consult: ABx coverage approval Time Spent in preparation of Discharge (in minutes): 60 Diagnosis - Discharge Diagnosis (1) Cellulitis of scrotum Status: Acute Hospital Course - Lab Results Lab Results: Micro Results 06/23/18 13:00 Blood Blood Culture - Preliminary NO GROWTH AFTER 4 DAYS 06/23/18 13:00 Blood Blood Culture - Preliminary NO GROWTH AFTER 4 DAYS 06/23/18 21:10 Urine Urine Culture - Final No Growth (<1,000 CFU/ML) Most Recent Lab Values WBC 8.7 10^3/uL (4.5-11.0) 06/27/18 06:30 RBC 5.55 10^6/uL (3.5-6.1) 06/27/18 06:30 Hgb 16.3 g/dL (14.0-18.0) 06/27/18 06:30 Hct 47.9 % (42.0-52.0) 06/27/18 06:30 MCV 86.3 fl (80.0-105.0) 06/27/18 06:30 MCH 29.4 pg (25.0-35.0) 06/27/18 06:30 MCHC 34.0 g/dl (31.0-37.0) 06/27/18 06:30 RDW 12.7 % (11.5-14.5) 06/27/18 06:30 Plt Count 278 10^3/uL (120.0-450.0) 06/27/18 06:30 MPV 9.5 fl (7.0-11.0) 06/27/18 06:30 Gran % 71.2 % (50.0-68.0) H 06/27/18 06:30 Lymph % (Auto) 16.2 % (22.0-35.0) L 06/27/18 06:30 Ray % (Auto) 6.3 % (1.0-6.0) H 06/27/18 06:30 Eos % (Auto) 6.1 % (1.5-5.0) H 06/27/18 06:30 Baso % (Auto) 0.2 % (0.0-3.0) 06/27/18 06:30 Gran # 6.17 (1.4-6.5) 06/27/18 06:30 Lymph # (Auto) 1.4 (1.2-3.4) 06/27/18 06:30 Ray # (Auto) 0.6 (0.1-0.6) 06/27/18 06:30 Eos # (Auto) 0.5 (0.0-0.7) 06/27/18 06:30 Baso # (Auto) 0.02 K/mm3 (0.0-2.0) 06/27/18 06:30 Neutrophils % (Manual) 82 % (50.0-70.0) H 06/24/18 06:45 Band Neutrophils % 1 % (0-2) 06/24/18 06:45 Lymphocytes % (Manual) 5 % (22.0-35.0) L 06/24/18 06:45 Monocytes % (Manual) 10 % (1.0-6.0) H 06/24/18 06:45 Eosinophils % (Manual) 2 % (0.0-3.0) 06/24/18 06:45 PT 13.0 SECONDS (9.4-12.5) H 06/23/18 13:00 INR 1.13 06/23/18 13:00 APTT 28.1 Seconds (25.1-36.5) 06/23/18 13:00 pO2 51 mm/Hg (30-55) 06/23/18 13:00 VBG pH 7.37 (7.32-7.43) 06/23/18 13:00 VBG pCO2 47.0 (40-60) 06/23/18 13:00 VBG HCO3 27.2 mmol/l (21-28) 06/23/18 13:00 VBG Total CO2 28.6 mmol.L (22-28) H 06/23/18 13:00 VBG O2 Sat (Calc) 89.2 % (40-65) H 06/23/18 13:00 VBG Base Excess 1.3 mmol/L (0.0-2.0) 06/23/18 13:00 VBG Potassium 4.2 mmol/L (3.6-5.2) 06/23/18 13:00 Sodium 133.0 mmol/L (132-148) 06/23/18 13:00 Chloride 98.0 mmol/L (98-107) 06/23/18 13:00 Glucose 113 mg/dl (75-110) H 06/23/18 13:00 Lactate 1.8 mmol/L (0.7-2.1) 06/23/18 13:00 FiO2 21.0 % 06/23/18 13:00 Sodium 135 mmol/L (132-148) 06/27/18 06:30 Potassium 4.7 mmol/L (3.6-5.0) 06/27/18 06:30 Chloride 96 mmol/L (98-107) L 06/27/18 06:30 Carbon Dioxide 32 mmol/L (21-33) 06/27/18 06:30 Anion Gap 11 (10-20) 06/27/18 06:30 BUN 17 mg/dL (7-21) 06/27/18 06:30 Creatinine 1.1 mg/dl (0.8-1.5) 06/27/18 06:30 Est GFR ( Amer) > 60 06/27/18 06:30 Est GFR (Non-Af Amer) > 60 06/27/18 06:30 POC Glucose (mg/dL) 135 mg/dL (65-110) H 06/27/18 16:31 Random Glucose 153 mg/dL (70-110) H 06/27/18 06:30 Hemoglobin A1c 6.9 % (4.2-6.5) H 06/24/18 06:45 Calcium 9.1 mg/dL (8.4-10.5) 06/27/18 06:30 Total Bilirubin 0.5 mg/dL (0.2-1.3) 06/27/18 06:30 AST 24 U/L (17-59) 06/27/18 06:30 ALT 25 U/L (7-56) 06/27/18 06:30 Alkaline Phosphatase 63 U/L (38-126) 06/27/18 06:30 Total Protein 7.4 g/dL (5.8-8.3) 06/27/18 06:30 Albumin 4.0 g/dL (3.0-4.8) 06/27/18 06:30 Globulin 3.4 gm/dL 06/27/18 06:30 Albumin/Globulin Ratio 1.2 (1.1-1.8) 06/27/18 06:30 Triglycerides 101 mg/dL (35-160) 06/24/18 06:45 Cholesterol 113 mg/dL (130-200) L 06/24/18 06:45 LDL Cholesterol Direct 71 mg/dL (0-129) 06/24/18 06:45 HDL Cholesterol 30 mg/dL (29-60) 06/24/18 06:45 Venous Blood Potassium 4.2 mmol/L (3.6-5.2) 06/23/18 13:00 Urine Color Yellow (YELLOW) 06/23/18 18:24 Urine Appearance Slight-cloudy (CLEAR) 06/23/18 18:24 Urine pH 6.5 (4.7-8.0) 06/23/18 18:24 Ur Specific [place] <= 1.005 (1.005-1.035) 06/23/18 18:24 Urine Protein Trace mg/dL (<30 mg/dL) H 06/23/18 18:24 Urine Glucose (UA) Negative mg/dL (NEGATIVE) 06/23/18 18:24 Urine Ketones Negative mg/dL (NEGATIVE) 06/23/18 18:24 Urine Blood Large (NEGATIVE) H 06/23/18 18:24 Urine Nitrate Negative (NEGATIVE) 06/23/18 18:24 Urine Bilirubin Negative (NEGATIVE) 06/23/18 18:24 Urine Urobilinogen 0.2 E.U./dL (<1 E.U./dL) 06/23/18 18:24 Ur Leukocyte Esterase Negative Mitesh/uL (NEGATIVE) 06/23/18 18:24 Urine RBC 5 - 10 /hpf (0-2) 06/23/18 18:24 Urine WBC 0 - 2 /hpf (0-6) 06/23/18 18:24 Ur Epithelial Cells 0 - 2 /hpf (0-5) 06/23/18 18:24 Other Crystals Cystine /hpf 06/23/18 18:24 Blood Type A POSITIVE 06/23/18 13:05 Blood Type Confirm A POSITIVE 06/23/18 19:15 Antibody Screen Negative 06/23/18 13:05 BBK History Checked No verified bt 06/23/18 13:05 - Hospital Course Hospital Course: Marc Miller, PGY-1, Internal Medicine Discharge Summary For Dr. Rey 68 year old male with past medical history of hypertension, left inguinal hernia, and NIDDM presented with robotic prostatectomy two weeks ago for cancer diagnosed on biopsy at [facility] with extreme pain and burning in the perineal area and inguinal folds. Patient stated that patient started to wear diapers after avitia was removed because of severe incontinence. Patient had pain in perineal area and around glans of penis with retracted penis. CT abdomen showed well circumscribed cystic lesions seen in the pelvis likely from sequela of previous prostatectomy. Likely cellulitis infection of perineal area was likely due to being soaked in urine from incontinence and excoriations around the area. Patient was started on vancomycin, zosyn, and clindamycin on admission. Blood culture and urine culture were negative. Patient initially had leukocytosis on presentation which resolved yesterday. Dr. Jefferson, Urology, had initially considered inserting a avitia catheter but after further examination decided that patient should not need avitia catheter. Dr. Olguin, Surgery, recommended no surgery at this time. Patient was started on linezolid and merrem as per ID recommendations. Desitin cream was started for the affected area for the patient. Patient was deemed stable for discharge today as he was afebrile, normothermic, and affected area was improving, and was advised to return to his urologist for further management of his prostate following surgery. Patient was told to follow up with PCP and his own urologist in 1 week. Patient was told to resume home medications and start a 10 day course of linezolid, vantin, and flagyl PO. Patient was told to return to the emergency department if he had recurring symptoms or worsening symptoms. This is a brief summary of the events that occurred at the hospital. For more information, please refer to the hospital documentation. - Date & Time of H&P Date of H&P: 06/23/18 Time of H&P: 17:41 Discharge Exam - Head Exam Head Exam: ATRAUMATIC, NORMAL INSPECTION, NORMOCEPHALIC - Eye Exam Eye Exam: EOMI, PERRL - Respiratory Exam Respiratory Exam: Clear to PA & Lateral, NORMAL BREATHING PATTERN - Cardiovascular Exam Cardiovascular Exam: REGULAR RHYTHM - GI/Abdominal Exam GI & Abdominal Exam: Normal Bowel Sounds - Exam Exam: Scrotal Swelling, Testicular Tenderness Speculum exam: Erythema - Extremities Exam Extremities exam: full ROM - Neurological Exam Neurological exam: Alert, CN II-XII Intact, Normal Gait, Oriented x3 Discharge Plan - Discharge Medications Prescriptions: Cefpodoxime [Vantin] 400 mg PO Q12H #20 tab Linezolid [Zyvox] 600 mg PO Q12H #20 tab Metronidazole [Flagyl] 500 mg PO Q8H #30 tablet oxyCODONE/Acetaminophen [Percocet 5/325 mg Tab] 1 ea PO Q6H PRN #20 tab PRN Reason: Pain, Severe (8-10) - Follow Up Plan Condition: FAIR Disposition: HOME/ ROUTINE Instructions: Cellulitis (DC), Cellulitis (GEN) Additional Instructions: Please follow up with your PCP and your urologist in one week. Please also follow up with your prostatectomy surgeon Please take antibiotics as prescribed for 10 days and home medications as prescribed. Please return to the emergency department if you experience any worsening symptoms or new concerning symptoms. Referrals: Kat Hannah MD, MD [Primary Care Provider] - Shashi Jefferson MD [Staff Provider] -
== END 2018-06-27 20:45 | disposition home or self-care (01) | DRG 728 ==
LOC: ED 11:27 → ERH 17:02 → 5RNO 21:00
PROVIDERS: ADMIT Internal Medicine; ATTEND Internal Medicine
DX: N49.2 Inflammatory disorders of scrotum (principal); L03.315 Cellulitis of perineum; L30.9 Dermatitis, unspecified; Z85.46 Personal history of malignant neoplasm of prostate; E11.9 Type 2 diabetes mellitus without complications; I10 Essential (primary) hypertension; K59.00 Constipation, unspecified; R32 Unspecified urinary incontinence; Z79.4 Long term (current) use of insulin